=== PATIENT | male | born 1945 | race Caucasian/White ===

== ENCOUNTER 2018-10-27 17:58 | Emergency (ER) | payer MEDICARE, BC ==
--- NOTE | 2018-10-27 18:22 | EDM.PDOC ---
ED HPI GENERAL MEDICAL PROBLEM - General Chief Complaint: General Stated Complaint: fall, L knee, L ankle pain Time Seen by Provider: 10/27/18 18:15 Source of Information: Reports: Patient, Family (Multiple members including daughter and ), Old Records ([facility] chart/EMR) History Limitations: Reports: No Limitations - History of Present Illness INITIAL COMMENTS - FREE TEXT/NARRATIVE: The patient was brought to the emergency room via private automobile by multiple family members, including his , daughter, etc.. The patient slipped on the ice in the parking lot at [facility] while packing his groceries with patient falling on his left knee with additional twisting of his left ankle. He complains of 5/10 left knee pain with 10/10 left ankle pain. He denies any head injury, loss of consciousness, headaches, visual changes, change in mental status, neck/back pain, paresthesias, neurological deficits, or other complaints or injuries. The patient denies any chest pain/pressure, heart flutter, dizziness, orthostasis, orthopnea, diaphoresis, paresthesias, recent decreased exercise tolerance, or any other anginal-type symptoms. No recent history of abdominal pain, heartburn, nausea, diarrhea, melena, gross hematochezia, or any food intolerance, including fatty foods, etc.. He denies any gross hematuria, colic, or other UTI symptoms. The patient also denies any recent fever, cough, wheezing, dyspnea, etc.. Note previous distant left fibular fracture in 2001 as below. Onset: Today Onset Date: 10/27/18 Onset Time: 17:00 Duration: Constant Location: Reports: Lower Extremity, Left. 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: Reports: Other (see below) (None) Left Knee Pain Score (Numeric/FACES): 5 Left Ankle Pain Score (Numeric/FACES): 10 - Related Data Allergies Allergy/AdvReac Type Severity Reaction Status Date / Time bee venom protein (honey bee) Allergy Unknown Other Verified 10/27/18 18:31 Penicillins Allergy Unknown Other Verified 10/27/18 18:31 Home Meds: Home Meds Calcium Carbonate/Vitamin D3 [Calcium 600 + Vit D 400 Softgl] 1 each PO BID 03/09 [History] Multivit with Calcium,Iron,Min [Essential Daily] 1 each PO DAILY 10/27/18 [ History] Osimertinib Mesylate [Tagrisso] 80 mg PO DAILY 10/27/18 [History] Sertraline [Zoloft] 25 mg PO DAILY 10/27/18 [History] Warfarin [Coumadin] 4 mg PO DAILY 10/27/18 [History] Past Medical History HEENT History: Reports: Cataract, Impaired Vision, Other (See Below). 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 Patient wears glasses. Cataracts with no surgery to this point. Cardiovascular History: Reports: Blood Clots/VTE/DVT, High Cholesterol, Other ( See Below). Denies: Afib, Aneurysm, Arrhythmia, CAD, Heart Failure, Heart Murmur, Hypertension, AR, Syncope Other Cardiovascular History: DVT of the right popliteal region with secondary bilateral PEs in October 2017 with current Coumadin therapy. Respiratory History: Reports: Intubation, Previous, PE, Other (See Below). Denies: Asthma, Bronchitis, Recurrent, COPD, Intubation, Difficult, Pneumonia, Recurrent, Pneumothorax, Sleep Apnea, TB Other Respiratory History: PE as above. Right-sided Port-A-Cath placement in October 2017. Gastrointestinal History: Reports: Diverticulosis, Gastritis, GERD, Other (See Below). Denies: Celiac Disease, Cholelithiasis, Chronic Constipation, Chronic Diarrhea, Colon Polyp, Fecal Incontinence, GI Bleed, Hepatitis, Hiatal Hernia, Inflammatory Bowel Disease, Irritable Bowel Syndrome, Jaundice, Pancreatitis, PUD Other Gastrointestinal History: Sigmoid diverticulosis by CT scan. Benign hepatic cysts by CT scan. Genitourinary History: Reports: BPH, Prostate Disorder, Other (See Below). Denies: Acute Renal Failure, Chronic Renal Insuffiency, Renal Calculus, STD, Urinary Incontinence, UTI, Recurrent Other Genitourinary History: Prostate and bladder cancer as below. Benign renal cysts by CT scan. Musculoskeletal History: Reports: Arthritis, Back Pain, Chronic, Fracture, Osteoarthritis, Other (See Below). Denies: Amputation, Gout, Neck Pain, Chronic , Osteoporosis, RA, SLE Other Musculoskeletal History: Left lateral malleolar fracture in October 2001. Previous chronic T12 and L1 vertebral body compression fractures. Neurological History: Reports: Concussion, Head Trauma, Vertigo, Other (See Below). Denies: Alzheimers Disease, Brain Injury, Cerebral Aneurysms, CVA, Headaches, Chronic, Migraines, MS, Neuropathy, Diabetic, Neuropathy, Peripheral , Parkinson's, Seizure, TIA Other Neuro History: Head concussion X 1 in about 1979. Benign positional vertigo. Psychiatric History: Reports: Anxiety, Depression. Denies: Abuse, Victim of, ADD, ADHD, Addiction, Psych Hospitalization(s), PTSD, Suicide Attempt, Suicidal Ideation Endocrine/Metabolic History: Reports: Other (See Below). Denies: Diabetes, Type I, Diabetes, Type II, Diabetes Mellitus, Type 3c, Hypothyroidism, IDDM Other Endocrine/Metabolic History: Diabetes with resolution with weight loss Hematologic History: Denies: Anemia, Blood Transfusion(s), Iron Deficiency Immunologic History: Reports: None. Denies: AIDS, HIV, SLE Oncologic (Cancer) History: Reports: Basal Cell Carcinoma, Bladder, Prostate, Other (See Below). 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 Prostate cancer in 2016 with previous prostate biopsy and hormonal therapy. 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 Unknown type of bladder cancer in 2003 with BCG therapy. Dermatologic History: Reports: None. Denies: Eczema, Psoriasis - Infectious Disease History Infectious Disease History: Reports: Chicken Pox. Denies: C-Difficile, Measles , Meningitis, Mononucleosis, MRSA, Mumps, Pertussis (Whooping Cough), Rheumatic Fever, Rubella, Scarlet Fever, Shingles, TB, VRE - Past Surgical History Head Surgeries/Procedures: Reports: None HEENT Surgical History: Reports: Adenoidectomy, Eye Surgery, Oral Surgery, Tonsillectomy, Other (See Below). Denies: Cataract Surgery, Laser Surgery, LASIK, Myringotomy w Tube(s), Naso-Sinus Surgery Other HEENT Surgeries/Procedures: Tonsillectomy and adenoidectomy at about age 5. Pterygium removal of the right eye in his 40s. My wisdom with additional tooth extraction. Cardiovascular Surgical History: Reports: None. Denies: Varicose, Vascular Surgery Respiratory Surgical History: Reports: Lung Biopsies, Other (See Below). Denies : Lung Resection, Pneumonectomy Other Respiratory Surgeries/Procedures: Lung biopsies for lung cancer with subsequent right sided pleurodesis in April 2018. GI Surgical History: Reports: Colonoscopy, EGD, Other (See Below). Denies: Appendectomy, Cholecystectomy, Hernia, Abdominal, Hernia, Inguinal, Hernia Repair/Other, Polypectomy Other GI Surgeries/Procedures: Last Colonoscopy in about 2012. EGD in September 2017. Male Surgical History: Reports: Circumcision, Prostate Biopsy. Denies: TURP- Transurethral Resection of Prostate, Vasectomy Other Male Surgeries/Procedures: Circumcision as an . Prostate biopsies for prostate cancer as above. Cystoscopy on 02/28/04. Endocrine Surgical History: Reports: None. Denies: Thyroid Biopsy Neurological Surgical History: Denies: C-Spine, Discectomy, Laminectomy, Lumbar Spine, Sacral Spine, Spinal Fusion, Thoracic Spine, Vertebroplasty Musculoskeletal Surgical History: Reports: Arthroscopic Procedure, Joint Replacement, Knee Replacement, Shoulder Surgery, Other (See Below). Denies: Carpal Tunnel, Ganglion Cyst, ORIF Other Musculoskeletal Surgeries/Procedures:: Bilateral total knee arthroplasty in 2010. Arthroscopic right shoulder surgery in about 2003. Oncologic Surgical History: Reports: Other (See Below). Denies: Bone Marrow Aspiration, Bone Marrow Transplant Other Oncologic Surgeries/Procedures: As above Dermatological Surgical History: Reports: Other (See Below) Other Dermatological Surgeries/Procedures: Multiple Skin excisions for basal cell carcinoma from the facial region as above. - Past Imaging History Past Imaging History: Reports: CAT Scan (CT of the chest, abdomen, and pelvis on 10/02/17.), MRI (MRI of the thoracic and lumbar spine on 01/29/11), Other (See Below) (IVP on 02/06/04) Social & Family History - Tobacco Use Smoking Status *Q: Former Smoker Tobacco Use Within Last Twelve Months: No Years of Tobacco use: 30 Packs/Tins Daily: 1 Packs/Tins Daily Comment: Smoked between ages 20 and 50. Used Tobacco, but Quit: Yes Smoking Cessation Information Provided To Patient: No Second Hand Smoke Exposure: No Second Hand Smoke Education Provided: No - Caffeine Use Caffeine Use: Reports: None. Denies: Coffee, Energy Drinks, Soda, Tea - Alcohol Use Alcohol Use History: No Days Per Week of Alcohol Use: 0 Number of Drinks Per Day: 0 Number of Drinks Per Day Comment: No previous DWIs, problems with alcohol abuse , etc. Total Drinks Per Week: 0 Alcohol Use in Last Twelve Months: No - Recreational Drug Use Recreational Drug Use: No Drug Use in Last 12 Months: No Recreational Drug Type: Denies: Amphetamines (Speed), Cocaine, Flunitrazepam, Heroin, Inhalants (Glues, Solvents, Aerosols), LSD (Acid), Marijuana/Hashish, Methamphetamine, Morphine - Living Situation & Occupation Living situation: Reports: (1966. 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 Patient wearing glasses), PERRL Ears: Normal External Exam, Normal Canal, Hearing Grossly Normal, Normal TMs Nose: Normal Inspection, Normal Mucosa, No Blood Throat/Mouth: Normal Inspection, Normal Lips, Normal Teeth (Occasional missing teeth), Normal Gums, Normal Oropharynx, Normal Voice, No Airway Compromise. No : Dysphagia Head: Atraumatic, Normocephalic. No: Facial Swelling, Facial Tenderness, Sinus Tenderness Neck: Supple, Non-Tender, Full Range of Motion, Carotid Bruit (Mild bilateral carotid bruits). No: Lymphadenopathy (L), Lymphadenopathy (R), Thyromegaly Respiratory/Chest: No Respiratory Distress, Lungs Clear, Normal Breath Sounds, No Accessory Muscle Use, Chest Non-Tender. No: Pleural Rub, Retractions Cardiovascular: Normal Peripheral Pulses, No Edema, No Gallop, No JVD, No Murmur , No Rub, Extra Beats (Regular rate, occasional extrasystoles). No: Gallop/S3, Gallop/S4, Friction Rub Peripheral Pulses: 2+: Radial (L), Radial (R), Dorsalis Pedis (L), Dorsalis Pedis (R) GI/Abdominal: Normal Bowel Sounds, Soft, Non-Tender, No Organomegaly, No Distention, No Abnormal Bruit, No Mass, Pelvis Stable. No: Guarding (Male) Exam: Deferred Rectal (Males) Exam: Deferred Back Exam: Normal Inspection, Full Range of Motion. No: CVA Tenderness (L), CVA Tenderness (R), Muscle Spasm Extremities: No Pedal Edema, Normal Capillary Refill, Leg Pain (Mild palpation pain over left patellar region with moderate knee effusion but no instability, crepitation, or deformity. Moderate palpation pain over the left lateral malleolus with moderate localized effusion but no deformity, instability, etc.) . No: Lindsay's Sign Neurological: Alert, Oriented, CN II-XII Intact, Normal Cognition, Normal Gait, Normal Reflexes (Negative Babinski's), No Motor/Sensory Deficits Psychiatric: Normal Affect, Normal Mood Skin Exam: Warm, Intact, Normal Color, No Rash. No: Diaphoretic, Ecchymosis, Petechiae, Wound/Incision Lymphatic: No Adenopathy ED GENERAL MEDICAL PROCEDURES - Splinting Left Lower Extremity Pre-procedure NV status: Normal Post-procedure NV status: Normal Splint Material: Air Splint, Other (Que wrap under air ankle splint) Splint Design: Stirrup Applied & Form Fitted By: Nurse Provider Post-Splint Application NV Check: NV Status Normal, Good Position Complications: No Course - Vital Signs Last Recorded V/S: Last Vital Signs Temp 36.6 C 10/27/18 17:59 Pulse 73 10/27/18 17:59 Resp 16 10/27/18 17:59 BP 115/70 10/27/18 17:59 Pulse Ox 98 10/27/18 17:59 Vital Signs - 24 hr 10/27/18 17:59 Temperature [ 36.6 C Temporal] Pulse, 73 Peripheral [ Right Pulse Oximetry] Respiratory 16 Rate Blood Pressure 115/70 [Right Upper Arm] O2 Sat by Pulse 98 Oximetry - Orders/Labs/Meds Orders: Active Orders 24 hr Category Date Time Status Cardiac Monitoring [RC] . DIRECTED Care 10/27/18 18:39 Active Ankle Min 3V Lt [CR] Stat Exams 10/27/18 18:24 Taken Knee 3V Lt [CR] Stat Exams 10/27/18 18:23 Taken Durable Medical Equipment for Discharge [DME for Oth 10/27/18 18:48 Ordered Discharge] [COMM] Routine Durable Medical Equipment for Discharge [DME for Oth 10/27/18 18:49 Ordered Discharge] [COMM] Routine Durable Medical Equipment for Discharge [DME for Oth 10/27/18 18:49 Ordered Discharge] [COMM] Routine Obtain Past Medical Record [OM.PC] Routine Oth 10/27/18 18:23 Active Labs: None Meds: None - Radiology Interpretation Free Text/Narrative:: groundwater monitoring technician shows normal sinus rhythm in the 60s to 70s with no extrasystoles noted. X-rays of the left ankle, 3 views, shows probable hairline nondisplaced, non- angulated nonindurated distal fibular fracture. Ankle mortise is intact. Note previous distant left ankle fracture as above. X-rays of the left knee, 3 views, shows no evidence of fracture, dislocation, loosening of TKA, etc. Moderate osteoarthritic changes noted Departure - Departure Time of Disposition: 20:20 Disposition: Home, Self-Care 01 Condition: Good Clinical Impression: Peptic reflux disease, Mixed anxiety depressive disorder Closed fracture of left distal fibula Qualifiers: Encounter type: initial encounter Fracture morphology: unspecified fracture morphology Qualified Code(s): S82.832A - Other fracture of upper and lower end of left fibula, initial encounter for closed fracture Contusion of left knee Qualifiers: Encounter type: initial encounter Qualified Code(s): S80.02XA - Contusion of left knee, initial encounter Lung cancer Qualifiers: Laterality: right Lung location: lower lobe of lung Qualified Code(s): C34.31 - Malignant neoplasm of lower lobe, right bronchus or lung Osteoarthritis Qualifiers: Osteoarthritis location: multiple joints Osteoarthritis type: primary Qualified Code(s): M15.0 - Primary generalized (osteo)arthritis DVT (deep venous thrombosis) Qualifiers: DVT location: lower extremity Affected thrombotic vein of extremity: popliteal Chronicity: chronic Laterality: right Qualified Code(s): I82.531 - Chronic embolism and thrombosis of right popliteal vein - Discharge Information *PRESCRIPTION DRUG MONITORING PROGRAM REVIEWED*: Not Applicable *COPY OF PRESCRIPTION DRUG MONITORING REPORT IN PATIENT TONJA: Not Applicable Instructions: Crutch Use, Adult, [id number], Cast or Splint Care, Adult, Easy -to-Read, Tibial and Fibular Fractures, Contusion, [id number] Referrals: Zaida Jimenez PA [Primary Care Provider] - Forms: ED Department Discharge Additional Instructions: 1. Follow-up with your regular provider in one week with recommended repeat x- rays of the left ankle and PTT/INR 2. BenGay or equivalent, heating pad, and/or ice packs as directed. 3. Leg elevation as discussed 4. Limited weightbearing as discussed with Que wrap, crutches, and air ankle splint to be used at all times with exception of bathing and topical treatments. 5. No Extra aspirin, Tylenol, NSAIDs, etc. as discussed secondary to current Coumadin therapy - Problem List & Annotations (1) Closed fracture of left distal fibula SNOMED Code(s): 114226443 Code(s): S82.832A - OTH FRACTURE OF UPPER AND LOWER END OF LEFT FIBULA, INIT Status: Acute Priority: High Current Visit: Yes Onset Date: 10/27/18 Annotation/Comment:: Close follow-up by his regular provider as per discharge instructions with probable cast placement in one week at that time. Symptomatic relief as per discharge instructions with no additional NSAIDs, Tylenol, etc. secondary to his Coumadin therapy. By his history his INR was 1.7 yesterday at [facility] with patient restarted on his regular Coumadin dose at that time. Activity restrictions, etc. discussed. Patient placed in an air ankle splint and Que wrap br ER nurse with crutches provided. Qualifiers: Encounter type: initial encounter Fracture morphology: unspecified fracture morphology Qualified Code(s): S82.832A - Other fracture of upper and lower end of left fibula, initial encounter for closed fracture (2) Contusion of left knee SNOMED Code(s): 16837503 Code(s): S80.02XA - CONTUSION OF LEFT KNEE, INITIAL ENCOUNTER Status: Acute Priority: High Current Visit: Yes Onset Date: 10/27/18 Annotation/ Comment:: Symptomatic relief as above. Qualifiers: Encounter type: initial encounter Qualified Code(s): S80.02XA - Contusion of left knee, initial encounter (3) DVT (deep venous thrombosis) SNOMED Code(s): 104217550 Code(s): I82.409 - ACUTE EMBOLISM AND THOMBOS UNSP DEEP VN UNSP LOWER EXTREMITY Status: Chronic Priority: Medium Current Visit: Yes Annotation /Comment:: Mildly subtherapeutic INR recently as above. Note the patient's Coumadin had been on hold for a short time last week secondary to elevated previously INR. Close follow-up by regular provider. Qualifiers: DVT location: lower extremity Affected thrombotic vein of extremity: popliteal Chronicity: chronic Laterality: right Qualified Code(s): I82.531 - Chronic embolism and thrombosis of right popliteal vein (4) Lung cancer SNOMED Code(s): 100701502 Code(s): C34.90 - MALIGNANT NEOPLASM OF UNSP PART OF UNSP BRONCHUS OR LUNG Status: Chronic Priority: Medium Current Visit: Yes Annotation/Comment:: Currently under therapy as above. Recent fever or bronchitic type symptoms. Qualifiers: Laterality: right Lung location: lower lobe of lung Qualified Code(s): C34.31 - Malignant neoplasm of lower lobe, right bronchus or lung (5) Mixed anxiety depressive disorder SNOMED Code(s): 224800533 Code(s): F41.8 - OTHER SPECIFIED ANXIETY DISORDERS Status: Chronic Priority: Medium Current Visit: Yes Annotation/Comment:: Stable by history (6) Osteoarthritis SNOMED Code(s): 032124272 Code(s): M19.90 - UNSPECIFIED OSTEOARTHRITIS, UNSPECIFIED SITE Status: Chronic Priority: Medium Current Visit: Yes Annotation/Comment:: Otherwise stable by history Qualifiers: Osteoarthritis location: multiple joints Osteoarthritis type: primary Qualified Code(s): M15.0 - Primary generalized (osteo)arthritis (7) Peptic reflux disease SNOMED Code(s): 688645275 Code(s): K21.9 - GASTRO-ESOPHAGEAL REFLUX DISEASE WITHOUT ESOPHAGITIS Status: Chronic Priority: Medium Current Visit: Yes Annotation/Comment:: Stable by history. - Problem List Review Problem List Initiated/Reviewed/Updated: Yes - My Orders Last 24 Hours: My Active Orders 10/27/18 18:23 Knee 3V Lt [CR] Stat Obtain Past Medical Record [OM.PC] Routine 10/27/18 18:24 Ankle Min 3V Lt [CR] Stat 10/27/18 18:39 Cardiac Monitoring [RC] . DIRECTED 10/27/18 18:48 Durable Medical Equipment for Discharge [DME for Discharge] [COMM] Routine 10/27/18 18:49 Durable Medical Equipment for Discharge [DME for Discharge] [COMM] Routine Durable Medical Equipment for Discharge [DME for Discharge] [COMM] Routine - Assessment/Plan Last 24 Hours: My Active Orders 10/27/18 18:23 Knee 3V Lt [CR] Stat Obtain Past Medical Record [OM.PC] Routine 10/27/18 18:24 Ankle Min 3V Lt [CR] Stat 10/27/18 18:39 Cardiac Monitoring [RC] . DIRECTED 10/27/18 18:48 Durable Medical Equipment for Discharge [DME for Discharge] [COMM] Routine 10/27/18 18:49 Durable Medical Equipment for Discharge [DME for Discharge] [COMM] Routine Durable Medical Equipment for Discharge [DME for Discharge] [COMM] Routine Assessment:: As above Plan: As above. Extensive precautions were given to the patient and multiple family members, who are in agreement with the treatment plan. See Patient Instructions for further treatment and plan.
== END 2018-10-27 20:30 | disposition home or self-care (01) ==
LOC: LL.ED 17:58
DX: S82.832A Other fracture of upper and lower end of left fibula, initial encounter for closed fracture (principal); S80.02XA Contusion of left knee, initial encounter; C34.31 Malignant neoplasm of lower lobe, right bronchus or lung; M15.0 Primary generalized (osteo)arthritis; I82.531 Chronic embolism and thrombosis of right popliteal vein; K30 Functional dyspepsia; F41.8 Other specified anxiety disorders; Z88.0 Allergy status to penicillin; Z87.891 Personal history of nicotine dependence; W00.0XXA Fall on same level due to ice and snow, initial encounter
CPT/HCPCS: 73562-LT; 73610-LT; 99284

== ENCOUNTER 2020-12-14 17:10 | Emergency (ER) | payer MEDICARE, BC ==
--- NOTE | 2020-12-14 18:05 | EDM.PDOC ---
ED HPI GENERAL MEDICAL PROBLEM - General Chief Complaint: Fever Stated Complaint: immunocompromised fever Time Seen by Provider: 12/14/20 17:15 Source of Information: Reports: Patient, Family History Limitations: Reports: No Limitations - History of Present Illness INITIAL COMMENTS - FREE TEXT/NARRATIVE: He is brought to the ED by his for evaluation of a fever. He has lung cancer and had chemotherapy on . This afternoon, the felt he was warm. Checked the temp at home 3 times, with readings of 100.4,100.6 and 100.8. states she doesn't trust the thermometer. No nasal congestion or runny nose. No sore throat. No cough or abnormal shortness of breath. H does complain of some lower abdominal discomfort since falling onto his abdomen about a week ago, but no change in the past 1-2 days. No dysuria, urgency or frequency. He was treated with Cipro for 7 days for possible pneumonia, finishing the course on . - Related Data Allergies Allergy/AdvReac Type Severity Reaction Status Date / Time bee venom protein (honey bee) Allergy Unknown Other Verified 10/27/18 18:31 Penicillins Allergy Unknown Other Verified 10/27/18 18:31 Home Meds: Home Meds Calcium Carbonate/Vitamin D3 [Calcium 600Mg-D3 400 Unit Sfgl] 1 each PO BID 10/27/18 [History] Multivit with Calcium,Iron,Min [Essential Daily] 1 each PO DAILY 10/27/18 [History] Sertraline [Zoloft] 25 mg PO DAILY 10/27/18 [History] Apixaban [Eliquis] 2.5 mg PO BID 12/14/20 [History] Prochlorperazine [Compazine] 10 mg PO Q6H PRN 12/14/20 [History] dexAMETHasone [Dexamethasone] 4 mg PO ASDIRECTED PRN 12/14/20 [History] levETIRAcetam [Keppra] 500 mg PO BID 12/14/20 [History] oxyCODONE 5 mg PO Q4HR PRN 12/14/20 [History] Past Medical History HEENT History: Reports: Cataract, Impaired Vision, Other (See Below) Other HEENT History: 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 Patient wears glasses. Cataracts with no surgery to this point. Cardiovascular History: Reports: Blood Clots/VTE/DVT, High Cholesterol, Other (See Below) Other Cardiovascular History: DVT of the right popliteal region with secondary bilateral PEs in October 2017 with current Coumadin therapy. Respiratory History: Reports: Intubation, Previous, PE, Other (See Below) Other Respiratory History: PE as above. Right-sided Port-A-Cath placement in October 2017. Gastrointestinal History: Reports: Diverticulosis, Gastritis, GERD, Other (See Below) Other Gastrointestinal History: Sigmoid diverticulosis by CT scan. Benign hepa tic cysts by CT scan. Genitourinary History: Reports: BPH, Prostate Disorder, Other (See Below) Other Genitourinary History: Prostate and bladder cancer as below. Benign renal cysts by CT scan. Musculoskeletal History: Reports: Arthritis, Back Pain, Chronic, Fracture, Osteoarthritis, Other (See Below) Other Musculoskeletal History: Left lateral malleolar fracture in October 2001. Previous chronic T12 and L1 vertebral body compression fractures. Neurological History: Reports: Concussion, Head Trauma, Vertigo, Other (See Below) Other Neuro History: Head concussion X 1 in about 1979. Benign positional vertigo. 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 Prostate cancer in 2016 with previous prostate biopsy and hormonal therapy. 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 Unknown type of bladder cancer in 2003 with BCG therapy. Dermatologic History: Reports: None - Infectious Disease History Infectious Disease History: Reports: Chicken Pox - Past Surgical History Head Surgeries/Procedures: Reports: None HEENT Surgical History: Reports: Adenoidectomy, Eye Surgery, Oral Surgery, Tonsillectomy, Other (See Below) Other HEENT Surgeries/Procedures: Tonsillectomy and adenoidectomy at about age 5. Pterygium removal of the right eye in his 40s. My wisdom with additional tooth extraction. Cardiovascular Surgical History: Reports: None Respiratory Surgical History: Reports: Lung Biopsies, Other (See Below) Other Respiratory Surgeries/Procedures: Lung biopsies for lung cancer with subsequent right sided pleurodesis in April 2018. GI Surgical History: Reports: Colonoscopy, EGD, Other (See Below) Other GI Surgeries/Procedures: Last Colonoscopy in about 2012. EGD in September 2017. Male Surgical History: Reports: Circumcision, Prostate Biopsy Other Male Surgeries/Procedures: Circumcision as an infant. Prostate biopsies for prostate cancer as above. Cystoscopy on 02/28/04. Endocrine Surgical History: Reports: None Musculoskeletal Surgical History: Reports: Arthroscopic Procedure, Joint Replacement, Knee Replacement, Shoulder Surgery, Other (See Below) Other Musculoskeletal Surgeries/Procedures:: Bilateral total knee arthroplasty in 2010. Arthroscopic right shoulder surgery in about 2003. Oncologic Surgical History: Reports: Other (See Below) Other Oncologic Surgeries/Procedures: As above Dermatological Surgical History: Reports: Other (See Below) - Past Imaging History Past Imaging History: Reports: CAT Scan (CT of the chest, abdomen, and pelvis on 10/02/17.), MRI (MRI of the thoracic and lumbar spine on 01/29/11), Other (See Below) (IVP on 02/06/04) Social & Family History - Tobacco Use Tobacco Use Status *Q: Former Tobacco User Used Tobacco, but Quit: Yes Month/Year Tobacco Last Used: "long time ago" - Caffeine Use Caffeine Use: Reports: None. Denies: Coffee, Energy Drinks, Soda, Tea - Living Situation & Occupation Living situation: Reports: (1966. 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 Denies: Chills, Malaise, Weakness, Fatigue HEENT: Denies: Nosebleed, Rhinitis, Sinus Problem, Throat Pain, Throat Swelling Respiratory: Denies: Shortness of Breath, Cough Cardiovascular: Denies: Chest Pain, Palpitations, Syncope GI/Abdominal: Reports: Abdominal Pain (Mild lower abdominal pain for past week). Denies: Diarrhea, Nausea, Vomiting : Denies: Discharge, Dysuria, Flank Pain, Frequency, Urgency Skin: Denies: Rash Neurological: Reports: Confusion (Intermittenet confusion for the past 9 months.). Denies: Dizziness, Headache, Syncope Psychiatric: Denies: Agitation, Anxiety ED EXAM, GENERAL - Physical Exam Exam: See Below Exam Limited By: No Limitations General Appearance: Alert, WD/WN, No Apparent Distress Eye Exam: Bilateral Eye: EOMI, PERRL Ears: Normal External Exam, Normal Canal, Hearing Grossly Normal, Normal TMs Nose: Normal Inspection, Normal Mucosa, No Blood Throat/Mouth: Normal Inspection, Normal Oropharynx, No Airway Compromise Head: Atraumatic, Normocephalic Neck: Non-Tender Respiratory/Chest: No Respiratory Distress, Lungs Clear, Normal Breath Sounds Cardiovascular: Regular Rate, Rhythm, No Edema, No Murmur GI/Abdominal: Normal Bowel Sounds, Soft, Tender (Mild diffuse lower quadrant tenderness). No: Guarding, Rebound Neurological: Alert, Oriented Psychiatric: Normal Affect, Normal Mood Skin Exam: Warm, Dry Lymphatic: No Adenopathy Course - Vital Signs Text/Narrative:: Exam is unremarkable, but questionable slight infiltrate on CXR and elevated CRP so will treat presumptively with levoquin and follow up with oncology. Last Recorded V/S: Last Vital Signs Temp 37.4 C 12/14/20 17:10 Pulse 109 H 12/14/20 17:10 Resp 24 H 12/14/20 17:10 BP 116/64 12/14/20 17:10 Pulse Ox 94 L 12/14/20 17:10 - Orders/Labs/Meds Orders: Active Orders 24 hr Category Date Time Status Chest 2V [CR] Stat Exams 12/14/20 17:39 Ordered Labs: Laboratory Tests 12/14/20 12/14/20 12/14/20 Range/Units 17:49 17:49 17:49 WBC 4.7 (4.0-10.2) K/uL RBC 4.27 L (4.33-5.41) M/uL Hgb 13.4 (13.1-16.8) g/dL Hct 39.7 (39.0-49.0) % MCV 93.0 D (84.0-98.0) fL MCH 31.4 (28.2-33.3) pg MCHC 33.8 (31.7-36.0) g/dL RDW 12.6 (11.2-14.1) % Plt Count 175 (150-350) K/uL Neut % (Auto) 60.1 (45.0-80.0) % Lymph % (Auto) 13.5 (10.0-50.0) % [place] % (Auto) 24.9 H (2.0-14.0) % Eos % (Auto) 1.1 (0.0-5.0) % Baso % (Auto) 0.4 (0.0-2.0) % Neut # (Auto) 2.79 (1.40-7.00) K/uL Lymph # (Auto) 0.63 (0.50-3.50) K/uL [place] # (Auto) 1.16 H (0.00-1.00) K/uL Eos # (Auto) 0.05 (0.00-0.50) K/uL Baso # (Auto) 0.02 (0.00-0.20) K/uL Sodium 133 L (136-145) mmol/L Potassium 4.5 (3.5-5.1) mmol/L Chloride 98 (98-107) mmol/L Carbon Dioxide 25.0 (21.0-32.0) mmol/L BUN 26 H (7-18) mg/dL Creatinine 1.03 (0.51-1.17) mg/dL Est Cr Clr Drug Dosing 55.92 mL/min Estimated GFR (MDRD) > 60 mL/min Glucose 136 H (70-99) mg/dL Calcium 9.1 (8.5-10.1) mg/dL Total Bilirubin 0.5 (0.2-1.0) mg/dL AST 21 (15-37) U/L ALT 25 (12-78) U/L Alkaline Phosphatase 73 (46-116) IU/L Total Protein 7.4 (6.4-8.2) g/dL Albumin 3.2 L (3.4-5.0) g/dL Specimen Type Urincc Urine Color Yellow Urine Appearance Clear Urine pH 5.5 (5.0-9.0) Ur Specific [place] 1.020 (1.005-1.030) Urine Protein 30 H (NEGATIVE) mg/dL Urine Glucose (UA) Negative (NEGATIVE) mg/dL Urine Ketones Negative (NEGATIVE) mg/dL Urine Occult Blood Negative (NEGATIVE) Urine Nitrite Negative (NEGATIVE) Urine Bilirubin Negative (NEGATIVE) Urine Urobilinogen 0.2 (0.2-1.0) E.U./dL Ur Leukocyte Esterase Negative (NEGATIVE) Urine RBC Not seen /HPF Urine WBC Not seen /HPF Ur Epithelial Cells Rare /LPF Urine Bacteria Rare (NONE TO FEW) /HPF - Radiology Interpretation Free Text/Narrative:: 2 views of the chest. Questionable small infiltrate in the right lower lung. Normal cardiac silhouette Departure - Departure Time of Disposition: 18:19 Disposition: Home, Self-Care 01 Condition: Good Clinical Impression: Fever, Immunosuppressed due to chemotherapy - Discharge Information *PRESCRIPTION DRUG MONITORING PROGRAM REVIEWED*: Not Applicable *COPY OF PRESCRIPTION DRUG MONITORING REPORT IN PATIENT TONJA: Not Applicable Referrals: Zaida Jimenez PA [Primary Care Provider] - Forms: ED Department Discharge Additional Instructions: Levoquin 500 mg once daily. Talk to oncologist on Thursday regarding need to continue med or not. Return with worsening symptoms. Sepsis Event Note (ED) - Evaluation Sepsis Screening Result: Possible Sepsis Risk - Focused Exam Vital Signs: Vital Signs Temp Pulse Resp BP Pulse Ox 12/14/20 17:10 37.4 C 109 H 24 H 116/64 94 L - My Orders Last 24 Hours: My Active Orders 12/14/20 17:39 Chest 2V [CR] Stat - Assessment/Plan Last 24 Hours: My Active Orders 12/14/20 17:39 Chest 2V [CR] Stat
[2020-12-14 18:07] LABS: CHLORIDE,CL 98 mmol/L (98-107); SODIUM,NA 133 mmol/L (136-145)
== END 2020-12-14 18:40 | disposition home or self-care (01) ==
LOC: LL.ED 17:10
DX: R50.9 Fever, unspecified (principal); D84.821 Immunodeficiency due to drugs; T45.1X5A Adverse effect of antineoplastic and immunosuppressive drugs, initial encounter; E11.9 Type 2 diabetes mellitus without complications; Z86.711 Personal history of pulmonary embolism; Z86.718 Personal history of other venous thrombosis and embolism; Z87.891 Personal history of nicotine dependence; Z91.030 Bee allergy status; Z88.0 Allergy status to penicillin; Z79.01 Long term (current) use of anticoagulants; Z79.899 Other long term (current) drug therapy
CPT/HCPCS: 36415; 71046; 80053; 81001; 85025; 99283; 99284-25

== ENCOUNTER 2021-01-01 09:11 | Emergency (ER) | payer MEDICARE, BC ==
[2021-01-01] MEDS ORDERED: Famotidine 20 MG/2 ML SDV IVPUSH ONE (09:19)
[2021-01-01] MEDS ORDERED: Ticagrelor 90 MG Tab PO ONE (09:19)
[2021-01-01] MEDS ORDERED: Sodium Chloride 0.9% 10 ML Syringe FLUSH PRN (09:19)
--- NOTE | 2021-01-01 09:19 | EDM.PDOC ---
ED HPI GENERAL MEDICAL PROBLEM - General Chief Complaint: Chest Pain Stated Complaint: chest pain Time Seen by Provider: 01/01/21 09:15 Source of Information: Reports: Patient, Family (), Old Records ([facility] chart/EMR) History Limitations: Reports: No Limitations - History of Present Illness INITIAL COMMENTS - FREE TEXT/NARRATIVE: Patient was brought to the emergency room for evaluation of 10/10 retrosternal chest pressure with some radiation to the right shoulder with symptoms starting at about 8:30 AM this morning while he was trying to get dressed. He did have an episode of nonspecific weakness yesterday evening without history of fall or injury. Note that the patient does have right lower lobe lung cancer currently under chemotherapy with last dose on 12/27/2020. He has had some baseline dyspnea and decreased exercise tolerance secondary to this illness. The patient denies any heart flutter, dizziness, orthostasis, orthopnea, diaphoresis, paresthesias, or any other anginal-type symptoms. No recent history of abdominal pain, heartburn, nausea, diarrhea, melena, gross hematochezia, or any food intolerance, including fatty foods, etc. with normal bowel movement yesterday evening. He denies any gross hematuria, colic, or other UTI symptoms. The patient also denies any recent fever, cough, wheezing, etc.. He has not had COVID-19 with Moderna immunization series completed at the end of October 2020. The patient did take 2 tablets of his oxycodone at about 8:30 AM this morning. Onset: Gradual, Unknown/Unsure Onset Date: 01/01/21 Onset Time: 08:30 Duration: Constant Location: Reports: Chest, Upper Extremity, Right, Radiates to (As above). Denies: Head, Face, Neck, Abdomen, Back, Pelvis, Upper Extremity, Left Quality: Reports: Pressure Severity: Severe Improves with: Reports: None Worsens with: Reports: Breathing Context: Reports: Other (As above). Denies: Sick Contact, Trauma Associated Symptoms: Reports: Chest Pain. 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: Reports: Other Medication(s) Other Treatments MOTORCOACH OPERATOR: oxycodone PRN Chest Pain Score (Numeric/FACES): 10 - Related Data Allergies Allergy/AdvReac Type Severity Reaction Status Date / Time bee venom protein (honey bee) Allergy Unknown Other Verified 01/01/21 09:18 Penicillins Allergy Unknown Other Verified 01/01/21 09:18 Home Meds: Home Meds Calcium Carbonate/Vitamin D3 [Calcium 600Mg-D3 400 Unit Sfgl] 1 each PO BID 10/27/18 [History] Multivit with Calcium,Iron,Min [Essential Daily] 1 each PO DAILY 10/27/18 [History] Sertraline [Zoloft] 25 mg PO DAILY 10/27/18 [History] Apixaban [Eliquis] 2.5 mg PO BID 12/14/20 [History] Prochlorperazine [Compazine] 10 mg PO Q6H PRN 12/14/20 [History] dexAMETHasone [Dexamethasone] 4 mg PO ASDIRECTED PRN 12/14/20 [History] levETIRAcetam [Keppra] 500 mg PO BID 12/14/20 [History] oxyCODONE 5 mg PO Q4HR PRN 12/14/20 [History] Acetaminophen [Tylenol Arthritis] 2 tab PO ASDIRECTED 01/01/21 [History] Past Medical History HEENT History: Reports: Cataract, Impaired Vision, Other (See Below). 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 Patient wears glasses. Cataracts with no surgery to this point. Cardiovascular History: Reports: Blood Clots/VTE/DVT, High Cholesterol, Other (See Below). Denies: Afib, Arrhythmia, CAD, Cardiomyopathy, Heart Failure, Heart Murmur, Hypertension, [place], PTCA, PVD, Syncope Other Cardiovascular History: DVT of the right popliteal region with secondary bilateral PEs in October 2017 with current Eliquis therapy. Respiratory History: Reports: Intubation, Previous, PE, Other (See Below). Denies: Asthma, Bronchitis, Recurrent, COPD, Intubation, Difficult, Pneumonia, Recurrent, Pneumothorax, Sleep Apnea, TB Other Respiratory History: PE as above. Right-sided Port-A-Cath placement in October 2017. Right lower lobe lung cancer with current chemotherapy and no previous radiation therapy. Gastrointestinal History: Reports: Diverticulosis, Gastritis, GERD, Other (See Below). Denies: Celiac Disease, Cholelithiasis, Chronic Constipation, Chronic Diarrhea, Colon Polyp, Fatty Liver, Fecal Incontinence, GI Bleed, Hepatitis, Hiatal Hernia, Inflammatory Bowel Disease, Irritable Bowel Syndrome, Jaundice, Pancreatitis, PUD Other Gastrointestinal History: Sigmoid diverticulosis by CT scan. Benign hepatic cysts by CT scan. Genitourinary History: Reports: BPH, Prostate Disorder, Other (See Below). Denies: Acute Renal Failure, Chronic Renal Insuffiency, Renal Calculus, Retention, Urinary, STD, Urinary Incontinence, UTI, Recurrent Other Genitourinary History: Prostate and bladder cancer as below. Benign renal cysts by CT scan. Musculoskeletal History: Reports: Arthritis, Back Pain, Chronic, Fracture, Osteoarthritis, Other (See Below). Denies: Amputation, Gout, Neck Pain, Chronic, RA, SLE Other Musculoskeletal History: Left lateral malleolar fracture in October 2001. Previous chronic T12 and L1 vertebral body compression fractures. Neurological History: Reports: Concussion, Head Trauma, Vertigo, Other (See Below). Denies: Alzheimers Disease, Cerebral Aneurysms, CVA, Headaches, Chronic, Migraines, MS, Neuropathy, Peripheral, Parkinson's, Seizure, TIA Other Neuro History: Head concussion X 1 in about 1979. Benign positional vertigo. Psychiatric History: Reports: Anxiety, Depression. Denies: Abuse, Victim of, ADD, ADHD, Addiction, Dementia, Psych Hospitalization(s), Psychosis, PTSD, Schizophrenia, Suicide Attempt, Suicidal Ideation Endocrine/Metabolic History: Reports: Other (See Below). Denies: Diabetes, Type I, Diabetes, Type II, Diabetes Mellitus, Type 3c, Hypothyroidism, IDDM, Obesity/BMI 30+ Other Endocrine/Metabolic History: Diabetes with resolution with weight loss Hematologic History: Reports: Other (See Below). 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 Immunologic History: Reports: Immunosuppression. 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 Prostate cancer in 2017 with previous prostate biopsy and hormonal therapy. 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 Unknown type of bladder cancer in 2004 with BCG therapy. Dermatologic History: Reports: None. Denies: Eczema, Psoriasis, Venous Stasis Dermatitis - Infectious Disease History Infectious Disease History: Reports: Chicken Pox. Denies: C-Difficile, Measles, Meningitis, Mononucleosis, MRSA, Mumps, Novel Coronavirus, Pertussis (Whooping Cough), Rheumatic Fever, Rubella, Scarlet Fever, Shingles, TB, VRE - Past Surgical History Head Surgeries/Procedures: Reports: None HEENT Surgical History: Reports: Adenoidectomy, Eye Surgery, Oral Surgery, Tonsillectomy, Other (See Below). Denies: Cataract Surgery, Laser Surgery, LASIK, Myringotomy w Tube(s), Naso-Sinus Surgery Other HEENT Surgeries/Procedures: Tonsillectomy and adenoidectomy at about age 5. Pterygium removal of the right eye in his 40s. [place] teeth extraction with additional tooth extractions. Cardiovascular Surgical History: Reports: Other (See Below). Denies: Varicose Other Cardiovascular Surgeries/Procedures: Right-sided Port-A-Cath placement in October 2017. Respiratory Surgical History: Reports: Lung Biopsies, Thoracentesis, Other (See Below) Other Respiratory Surgeries/Procedures: Lung biopsies for lung cancer with subsequent right sided pleurodesis in April 2018. GI Surgical History: Reports: Colonoscopy, EGD, Other (See Below). Denies: Appendectomy, Cholecystectomy, ERCP, Hernia, Abdominal, Hernia, Inguinal, Hernia Repair/Other, Polypectomy Other GI Surgeries/Procedures: Last Colonoscopy in about 2012. EGD in September 2017. Male Surgical History: Reports: Circumcision, Prostate Biopsy. Denies: TURP- Transurethral Resection of Prostate, Vasectomy Other Male Surgeries/Procedures: Circumcision as an infant. Prostate biopsies for prostate cancer as above. Cystoscopy on 02/28/04. Endocrine Surgical History: Reports: None. Denies: Thyroid Biopsy Neurological Surgical History: Reports: None. Denies: C-Spine, Discectomy, Laminectomy, Lumbar Spine, Sacral Spine, Spinal Fusion, Thoracic Spine, Vertebr oplasty Musculoskeletal Surgical History: Reports: Arthroscopic Procedure, Joint Replacement, Knee Replacement, Shoulder Surgery, Other (See Below). Denies: Carpal Tunnel, Ganglion Cyst, ORIF Other Musculoskeletal Surgeries/Procedures:: Bilateral total knee arthroplasty in 2010. Arthroscopic right shoulder surgery in about 2003. Oncologic Surgical History: Reports: Other (See Below) Other Oncologic Surgeries/Procedures: As above Dermatological Surgical History: Reports: Other (See Below) Other Dermatological Surgeries/Procedures: Multiple skin excisions for basal cell carcinoma from the facial region as above. - Past Imaging History Past Imaging History: Reports: CAT Scan (CT of the chest, abdomen, and pelvis on 10/02/17.), MRI (MRI of the thoracic and lumbar spine on 01/29/11), Other (See Below) (IVP on 02/06/04) Social & Family History - Tobacco Use Tobacco Use Status *Q: Former Tobacco User Tobacco Use Within Last Twelve Months: No Years of Tobacco use: 30 Packs/Tins Daily: 1 Packs/Tins Daily Comment: Smoked between ages 20 and 30. Used Tobacco, but Quit: Yes Smoking Cessation Information Provided To Patient: No Second Hand Smoke Exposure: No Second Hand Smoke Education Provided: No - Caffeine Use Caffeine Use: Reports: None. Denies: Coffee, Energy Drinks, Soda, Tea - Alcohol Use Alcohol Use History: No Days Per Week of Alcohol Use: 0 Number of Drinks Per Day: 0 Number of Drinks Per Day Comment: No previous DWIs, problems with alcohol abuse, etc. Total Drinks Per Week: 0 Alcohol Use in Last Twelve Months: No - Recreational Drug Use Recreational Drug Use: No Drug Use in Last 12 Months: No Recreational Drug Type: Denies: Amphetamines (Speed), Cocaine, Dextromethorphan (Cough Syrup), Heroin, Inhalants (Glues, Solvents, Aerosols), LSD (Acid), Marijuana/Hashish, Methamphetamine, Morphine, Oxycodone - Living Situation & Occupation Living situation: Reports: (1966. 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 ED EXAM, GENERAL - Physical Exam Exam: See Below Exam Limited By: No Limitations General Appearance: Alert, WD/WN, No Apparent Distress, Anxious (Mild) Head: Atraumatic, Normocephalic. No: Facial Swelling, Facial Tenderness, Sinus Tenderness Neck: Supple, Non-Tender, Full Range of Motion, Carotid Bruit (Mild bilateral carotid bruits versus transmitted heart sounds). No: Lymphadenopathy (L), Lymphadenopathy (R), Thyromegaly Respiratory/Chest: No Respiratory Distress, No Accessory Muscle Use, Chest Non- Tender, Decreased Breath Sounds (Mild right lower lobe), Rales (Moderate bilateral basal rales right greater than left), Other (Port-A-Cath noted in the right upper chest wall region). No: Rhonchi, Wheezing, Pleural Rub Cardiovascular: Normal Peripheral Pulses, Regular Rate, Rhythm, No Edema, No Gallop, No JVD, No Rub, Systolic Murmur (Mild 1/6 QUINTIN of the aortic valve). No: Diastolic Murmur, Gallop/S3, Gallop/S4, Friction Rub Peripheral Pulses: 2+: Radial (L), Radial (R), Dorsalis Pedis (L), Dorsalis Pedis (R) GI/Abdominal: Normal Bowel Sounds, Soft, Non-Tender, No Organomegaly, No Distention, No Abnormal Bruit, No Mass, Pelvis Stable. No: Guarding (Male) Exam: Deferred Rectal (Males) Exam: Deferred Back Exam: Normal Inspection, Full Range of Motion. No: CVA Tenderness (L), CVA Tenderness (R), Muscle Spasm Extremities: Normal Inspection, Normal Range of Motion, Non-Tender, No Pedal Edema, Normal Capillary Refill. No: Lindsay's Sign Neurological: Alert, Oriented, CN II-XII Intact, Normal Cognition, Normal Gait, No Motor/Sensory Deficits Psychiatric: Anxious (Mild), Depressed Mood (Mild) Skin Exam: Warm, Dry, Intact, Normal Color, No Rash. No: Diaphoretic, Wound/Incision Lymphatic: No Adenopathy #1 Interpretation EKG Date: 01/01/21 Time: 09:22 Rhythm: NSR Rate (Beats/Min): 98 [place]: Normal (Left) P-Wave: Enlarged (Mild diffuse biphasic) QRS: Normal (0.08 seconds) ST-T: Normal QT: Normal [place]/PQ Interval: 0.13 seconds representing a short [place] interval with no delta waves noted Comparison: NA - No Prior EKG EKG Interpretation Comments: 1. No acute ischemic changes 2. Left atrial enlargement Course - Vital Signs Last Recorded V/S: Last Vital Signs Temp 37.2 C 01/01/21 09:12 Pulse 87 01/01/21 12:38 Resp 21 H 01/01/21 12:38 BP 104/66 01/01/21 12:38 Pulse Ox 93 L 01/01/21 12:38 Vital Signs - 24 hr 01/01/21 01/01/21 01/01/21 09:12 09:14 09:29 Temperature [ 37.2 C Temporal] Pulse, 93 98 97 Peripheral [ Left Pulse Oximetry] Respiratory 27 H 29 H 31 H Rate Blood Pressure 117/60 128/69 [Left Upper Arm ] Blood Pressure 138/71 [Right Upper Arm] O2 Sat by Pulse 93 L 93 L 93 L Oximetry 01/01/21 01/01/21 01/01/21 09:44 09:59 10:25 Temperature [ Temporal] Pulse, 91 89 84 Peripheral [ Left Pulse Oximetry] Respiratory 27 H 26 H Rate Blood Pressure 109/55 L 100/60 105/58 L [Left Upper Arm ] Blood Pressure [Right Upper Arm] O2 Sat by Pulse 92 L 93 L 93 L Oximetry 01/01/21 01/01/21 01/01/21 10:53 11:08 11:23 Temperature [ Temporal] Pulse, 88 90 89 Peripheral [ Left Pulse Oximetry] Respiratory 24 H 18 26 H Rate Blood Pressure 120/56 L 101/52 L 119/58 L [Left Upper Arm ] Blood Pressure [Right Upper Arm] O2 Sat by Pulse 94 L 93 L 26 L Oximetry 01/01/21 01/01/21 01/01/21 11:38 11:53 12:08 Temperature [ Temporal] Pulse, 89 88 86 Peripheral [ Left Pulse Oximetry] Respiratory 21 H 20 22 H Rate Blood Pressure 113/56 L 103/55 L 109/53 L [Left Upper Arm ] Blood Pressure [Right Upper Arm] O2 Sat by Pulse 93 L 93 L 93 L Oximetry 01/01/21 01/01/21 12:23 12:38 Temperature [ Temporal] Pulse, 86 87 Peripheral [ Left Pulse Oximetry] Respiratory 20 21 H Rate Blood Pressure 103/53 L 104/66 [Left Upper Arm ] Blood Pressure [Right Upper Arm] O2 Sat by Pulse 93 L 93 L Oximetry - Orders/Labs/Meds Orders: Active Orders 24 hr Category Date Time Status Cardiac Monitoring [RC] . DIRECTED Care 01/01/21 09:20 Active EKG Documentation Completion [RC] ASDIRECTED Care 01/01/21 09:20 Active Oxygen Therapy, ED [RC] PRN Care 01/01/21 09:20 Active Peripheral IV Care [RC] . DIRECTED Care 01/01/21 09:20 Active Pulse Oximetry [RC] CONTINUOUS Care 01/01/21 09:20 Active Up With Assistance [RC] PFP Care 01/01/21 09:20 Active Vital Signs [RC] PFP Care 01/01/21 09:20 Active Nothing per Oral Now Diet [DIET] Diet 01/01/21 Breakfast Active Chest 1V Frontal [CR] Stat Exams 01/01/21 09:20 Taken Chest PE [Ang Chest] [CT] Stat Exams 01/01/21 10:24 Taken Sodium Chloride 0.9% [Saline Flush] Med 01/01/21 09:19 Active 10 ml FLUSH ASDIRECTED PRN Obtain Past Medical Record [OM.PC] Urgent Oth 01/01/21 09:20 Active Peripheral IV Insertion Adult [OM.PC] Stat Oth 01/01/21 09:20 Ordered Resuscitation Status Stat Resus Stat 01/01/21 09:19 Ordered Medication Orders Sodium Chloride (Sodium Chloride 0.9% 10 Ml Syringe) 10 ml FLUSH ASDIRECTED PRN PRN Reason: Keep Vein Open Last Admin: 01/01/21 09:34 Dose: 10 ml Documented by: MARLEEN Labs: Laboratory Tests 01/01/21 01/01/21 01/01/21 Range/Units 09:30 09:30 09:30 WBC 9.4 (4.0-10.2) K/uL RBC 4.05 L (4.33-5.41) M/uL Hgb 12.7 L (13.1-16.8) g/dL Hct 37.5 L (39.0-49.0) % MCV 92.6 (84.0-98.0) fL MCH 31.4 (28.2-33.3) pg MCHC 33.9 (31.7-36.0) g/dL RDW 13.1 (11.2-14.1) % Plt Count 227 (150-350) K/uL Neut % (Auto) 87.7 H (45.0-80.0) % Lymph % (Auto) 4.9 L (10.0-50.0) % [place] % (Auto) 6.8 (2.0-14.0) % Eos % (Auto) 0.5 (0.0-5.0) % Baso % (Auto) 0.1 (0.0-2.0) % Neut # (Auto) 8.25 H (1.40-7.00) K/uL Lymph # (Auto) 0.46 L (0.50-3.50) K/uL [place] # (Auto) 0.64 (0.00-1.00) K/uL Eos # (Auto) 0.05 (0.00-0.50) K/uL Baso # (Auto) 0.01 (0.00-0.20) K/uL PT 10.5 (9.5-12.0) SEC INR 1.0 APTT 35.7 H (24.5-32.8) SEC D-Dimer, Quantitative 2080 H (0-400) ng/mL Sodium (136-145) mmol/L Potassium (3.5-5.1) mmol/L Chloride (98-107) mmol/L Carbon Dioxide (21.0-32.0) mmol/L BUN (7-18) mg/dL Creatinine (0.51-1.17) mg/dL Est Cr Clr Drug Dosing Estimated GFR (MDRD) mL/min Glucose (70-99) mg/dL Lactic Acid (0.4-2.0) mmol/L Uric Acid (2.6-7.2) mg/dL Calcium (8.5-10.1) mg/dL Magnesium (1.8-2.4) mg/dL Total Bilirubin (0.2-1.0) mg/dL AST (15-37) U/L ALT (12-78) U/L Alkaline Phosphatase (46-116) IU/L Creatine Kinase (26-308) U/L Creatine Kinase Index (0.0-2.5) % CK-MB (CK-2) (0.00-3.60) ng/mL Troponin I (0.000-0.056) ng/mL NT-Pro-B Natriuret Pep (0-125) pg/mL Total Protein (6.4-8.2) g/dL Albumin (3.4-5.0) g/dL TSH, Ultra Sensitive (0.358-3.740) mIU/mL 01/01/21 01/01/21 Range/Units 09:30 09:30 WBC (4.0-10.2) K/uL RBC (4.33-5.41) M/uL Hgb (13.1-16.8) g/dL Hct (39.0-49.0) % MCV (84.0-98.0) fL MCH (28.2-33.3) pg MCHC (31.7-36.0) g/dL RDW (11.2-14.1) % Plt Count (150-350) K/uL Neut % (Auto) (45.0-80.0) % Lymph % (Auto) (10.0-50.0) % [place] % (Auto) (2.0-14.0) % Eos % (Auto) (0.0-5.0) % Baso % (Auto) (0.0-2.0) % Neut # (Auto) (1.40-7.00) K/uL Lymph # (Auto) (0.50-3.50) K/uL [place] # (Auto) (0.00-1.00) K/uL Eos # (Auto) (0.00-0.50) K/uL Baso # (Auto) (0.00-0.20) K/uL PT (9.5-12.0) SEC INR APTT (24.5-32.8) SEC D-Dimer, Quantitative (0-400) ng/mL Sodium 134 L (136-145) mmol/L Potassium 3.9 (3.5-5.1) mmol/L Chloride 97 L (98-107) mmol/L Carbon Dioxide 25.4 (21.0-32.0) mmol/L BUN 18 (7-18) mg/dL Creatinine 0.93 (0.51-1.17) mg/dL Est Cr Clr Drug Dosing TNP Estimated GFR (MDRD) > 60 mL/min Glucose 156 H (70-99) mg/dL Lactic Acid 0.9 (0.4-2.0) mmol/L Uric Acid 5.1 (2.6-7.2) mg/dL Calcium 8.7 (8.5-10.1) mg/dL Magnesium 1.8 (1.8-2.4) mg/dL Total Bilirubin 1.0 (0.2-1.0) mg/dL AST 19 (15-37) U/L ALT 18 (12-78) U/L Alkaline Phosphatase 70 (46-116) IU/L Creatine Kinase 77 (26-308) U/L Creatine Kinase Index 0.8 (0.0-2.5) % CK-MB (CK-2) 0.60 (0.00-3.60) ng/mL Troponin I 0.000 (0.000-0.056) ng/mL NT-Pro-B Natriuret Pep 235 H (0-125) pg/mL Total Protein 6.6 (6.4-8.2) g/dL Albumin 2.9 L (3.4-5.0) g/dL TSH, Ultra Sensitive 0.857 (0.358-3.740) mIU/mL Meds: Medications Generic Name Dose Route Start Last Admin Trade Name Humberto PRN Reason Stop Dose Admin Sodium Chloride 10 ml 01/01/21 09:19 01/01/21 09:34 Sodium Chloride 0.9% 10 Ml Syringe FLUSH 10 ml ASDIRECTED PRN Administration Keep Vein Open Discontinued Medications Generic Name Dose Route Start Last Admin Trade Name Humberto PRN Reason Stop Dose Admin Famotidine 40 mg 01/01/21 09:19 01/01/21 09:33 Famotidine 20 Mg/2 Ml Sdv IVPUSH 01/01/21 09:20 40 mg ONETIME ONE Administration Iopamidol 100 ml 01/01/21 10:27 01/01/21 10:47 Iopamidol 755 Mg/Ml 100 Ml Bottle IVPUSH 01/01/21 10:28 100 ml ONETIME ONE Administration Morphine Sulfate 1 mg 01/01/21 09:41 01/01/21 09:46 Morphine 2 Mg/Ml Syringe IVPUSH 01/01/21 09:42 1 mg ONETIME ONE Administration Ondansetron HCl 4 mg 01/01/21 09:41 01/01/21 09:45 Ondansetron 4 Mg/2 Ml Sdv IVPUSH 01/01/21 09:42 4 mg ONETIME ONE Administration - Radiology Interpretation Free Text/Narrative:: campus monitor shows normal sinus rhythm in the 80-90s with occasional mild borderline tachycardia in the low 100s with movement activity with no extrasystoles or other arrhythmia. Chest x-ray, portable, shows mildly elevated right hemidiaphragm with moderate infiltrates, atelectasis and/or beginning consolidation and fibrosis with previous pulmonary carcinoma difficult to assess secondary to these changes. No significant cardiomegaly with only mild prominence of the proximal aortic arch. Mild pulmonary obstructive disease with probable pulmonary hypertension and/or mild CHF. No pneumothorax noted. Telephone consultation at 11:12 AM with the radiology department at [facility]. Preliminary verbal report of CTA of the chest using PE protocol was negative for PE. Incidental findings include previously known right lower lobe lung cancer with moderate mediastinal lymphadenopathy, mild bilateral pleural effusions, fibrotic changes of the right lower lobe consistent with his cancer with no direct evidence of pneumonia, and additional nonspecific gallbladder enlargement. CT Results Date: 01/01/21 CT Results Time: 11:12 Departure - Departure Time of Disposition: 13:06 Disposition: DC/Tfer to [facility] 02 Reason for Transfer *Q: Other (Cardiology consultation by accepting providers) Clinical Impression: Mixed anxiety depressive disorder, Peptic reflux disease, D-dimer, elevated, Hypoalbuminemia, Hyponatremia Osteoarthritis Qualifiers: Osteoarthritis location: multiple joints Osteoarthritis type: primary Qualified Code(s): M89.49 - Other hypertrophic osteoarthropathy, multiple sites Lung cancer Qualifiers: Laterality: right Lung location: lower lobe of lung Qualified Code(s): C34.31 - Malignant neoplasm of lower lobe, right bronchus or lung Chest pain Qualifiers: Chest pain type: precordial pain Qualified Code(s): R07.2 - Precordial pain Anemia Qualifiers: Anemia type: unspecified type Qualified Code(s): D64.9 - Anemia, unspecified CHF (congestive heart failure) Qualifiers: Heart failure type: unspecified Heart failure chronicity: acute Qualified Code(s): I50.9 - Heart failure, unspecified Referrals: Zaida Jimenez PA [Primary Care Provider] - Forms: ED Department Discharge, Interfacility Transfer [facility] Sepsis Event Note (ED) - Evaluation Sepsis Screening Result: Possible Sepsis Risk - Focused Exam Vital Signs: Vital Signs Temp Pulse Resp BP BP Pulse Ox 01/01/21 12:38 87 21 H 104/66 93 L 01/01/21 12:23 86 20 103/53 L 93 L 01/01/21 12:08 86 22 H 109/53 L 93 L 01/01/21 11:53 88 20 103/55 L 93 L 01/01/21 11:38 89 21 H 113/56 L 93 L 01/01/21 11:23 89 26 H 119/58 L 26 L 01/01/21 11:08 90 18 101/52 L 93 L 01/01/21 10:53 88 24 H 120/56 L 94 L 01/01/21 10:25 84 26 H 105/58 L 93 L 01/01/21 09:59 89 100/60 93 L 01/01/21 09:44 91 27 H 109/55 L 92 L 01/01/21 09:29 97 31 H 128/69 93 L 01/01/21 09:14 98 29 H 117/60 93 L 01/01/21 09:12 37.2 C 93 27 H 138/71 93 L - Problem List & Annotations (1) Chest pain SNOMED Code(s): 05886883 Code(s): R07.9 - CHEST PAIN, UNSPECIFIED Status: Acute Priority: High Current Visit: No Onset Date: 01/01/21 Annotation/Comment:: Various therapeutic options were discussed with the patient his , who are requesting that he be transferred to [facility] in [place]. Telephone consultation at 11:[address] Norton, emergency room physician at [facility] in [place], who does agree to accept the patient for further treatment and evaluation, with no further treatment recommendations given. He also agrees to contact their hospitalist concerning this patient transfer. The patient was chest pain free at time of his transfer with overall stable vital signs and clinical exam prior to transfer. Ambulance transfer with electrical cad designer accompaniment. Chest pain protocol initiated immediately upon patient's arrival to the emergency room. Symptoms are somewhat atypical possibly secondary to his current lung cancer. Note current Eliquis therapy with aspirin and Brilinta not given immediately on arrival to this facility. IV Zofran and IV morphine given for additional pain control with patient taking 2 oxycodone prior to arrival. EKG is normal with normal cardiac enzymes with exception of mildly elevated BNP as below. Likely cardiology consultation with initiation of standard rule out [place] orders by accepting providers. Emotional support provided. Qualifiers: Chest pain type: precordial pain Qualified Code(s): R07.2 - Precordial pain (2) CHF (congestive heart failure) SNOMED Code(s): 78854981 Code(s): I50.9 - HEART FAILURE, UNSPECIFIED Status: Acute Priority: High Current Visit: No Onset Date: 01/01/21 Annotation/Comment:: Borderline CHF by chest x-ray, clinical exam, and BNP. Note somewhat low blood pressures with observation for now and no initiation of IV Lasix prior to patient's transfer. His cardiac enzymes are otherwise normal. Further work-up including possible echocardiogram, etc. depending on his clinical course. Note evidence of mild bilateral pleural effusions left greater than right by CT of the chest as above. Qualifiers: Heart failure type: unspecified Heart failure chronicity: acute Qualified Code(s): I50.9 - Heart failure, unspecified (3) D-dimer, elevated SNOMED Code(s): 769873090 Code(s): R79.89 - OTHER SPECIFIED ABNORMAL FINDINGS OF BLOOD CHEMISTRY Status: Acute Priority: High Current Visit: No Onset Date: 01/01/21 Annotation/Comment:: CTA of the chest results as above with no direct evidence of PE. Consider venous Doppler studies of the lower extremities by accepting providers. Note current chemotherapy and previous history of DVT and bilateral PEs as above. No direct clinical evidence of DVT or PE by clinical exam today. Note current Eliquis therapy. (4) Lung cancer SNOMED Code(s): 352200575 Code(s): C34.90 - MALIGNANT NEOPLASM OF UNSP PART OF UNSP BRONCHUS OR LUNG Status: Chronic Priority: Medium Current Visit: No Annotation/Comment:: Currently under therapy as above. No recent fever or bronchitic type symptoms. No leukocytosis with normal lactic acid level and no direct evidence of infection despite his current chemotherapy. Qualifiers: Laterality: right Lung location: lower lobe of lung Qualified Code(s): C34.31 - Malignant neoplasm of lower lobe, right bronchus or lung (5) Mixed anxiety depressive disorder SNOMED Code(s): 953293931 Code(s): F41.8 - OTHER SPECIFIED ANXIETY DISORDERS Status: Chronic Priority: Medium Current Visit: No Annotation/Comment:: Stable by history, although somewhat moderate control based on today's evaluation. Continue to observe closely by his regular providers. (6) Osteoarthritis SNOMED Code(s): 324623944 Code(s): M19.90 - UNSPECIFIED OSTEOARTHRITIS, UNSPECIFIED SITE Status: Chronic Priority: Medium Current Visit: No Annotation/Comment:: Otherwise stable by history with no recent history of fall or injury. Qualifiers: Osteoarthritis location: multiple joints Osteoarthritis type: primary Qualified Code(s): M89.49 - Other hypertrophic osteoarthropathy, multiple sites (7) Peptic reflux disease SNOMED Code(s): 384222562 Code(s): K21.9 - GASTRO-ESOPHAGEAL REFLUX DISEASE WITHOUT ESOPHAGITIS Status: Chronic Priority: Medium Current Visit: No Annotation/Comment:: High-dose IV Pepcid given in the emergency room and GI prophylaxis. Note current Eliquis therapy secondary to his history of DVT and bilateral PEs. Stable by history. (8) Anemia SNOMED Code(s): 631941920 Code(s): D64.9 - ANEMIA, UNSPECIFIED Status: Acute Priority: Medium Current Visit: No Annotation/Comment:: Mild with no evidence of acute GI bleed as above. Note current chemotherapy. Qualifiers: Anemia type: unspecified type Qualified Code(s): D64.9 - Anemia, unspecified (9) Hypoalbuminemia SNOMED Code(s): 028918865 Code(s): E88.09 - [facility] DISORDERS OF PLASMA-PROTEIN METABOLISM, NEC Status: Acute Priority: Medium Current Visit: No Onset Date: 01/01/21 Annotation/Comment:: Observe for now (10) Hyponatremia SNOMED Code(s): 96548681 Code(s): E87.1 - HYPO-OSMOLALITY AND HYPONATREMIA Status: Acute Priority: Medium Current Visit: No Onset Date: 01/01/21 Annotation/Comment:: Mild possibly secondary to his CHF. Observe for now. - Problem List Review Problem List Initiated/Reviewed/Updated: Yes - My Orders Last 24 Hours: My Active Orders 01/01/21 Breakfast Nothing per Oral Now Diet [DIET] 01/01/21 09:19 Sodium Chloride 0.9% [Saline Flush] 10 ml FLUSH ASDIRECTED PRN Resuscitation Status Stat 01/01/21 09:20 Cardiac Monitoring [RC] . DIRECTED EKG Documentation Completion [RC] ASDIRECTED Oxygen Therapy, ED [RC] PRN Peripheral IV Care [RC] . DIRECTED Pulse Oximetry [RC] CONTINUOUS Up With Assistance [RC] PFP Vital Signs [RC] PFP Chest 1V Frontal [CR] Stat Obtain Past Medical Record [OM.PC] Urgent Peripheral IV Insertion Adult [OM.PC] Stat 01/01/21 10:24 Chest PE [Ang Chest] [CT] Stat - Assessment/Plan Last 24 Hours: My Active Orders 01/01/21 Breakfast Nothing per Oral Now Diet [DIET] 01/01/21 09:19 Sodium Chloride 0.9% [Saline Flush] 10 ml FLUSH ASDIRECTED PRN Resuscitation Status Stat 01/01/21 09:20 Cardiac Monitoring [RC] . DIRECTED EKG Documentation Completion [RC] ASDIRECTED Oxygen Therapy, ED [RC] PRN Peripheral IV Care [RC] . DIRECTED Pulse Oximetry [RC] CONTINUOUS Up With Assistance [RC] PFP Vital Signs [RC] PFP Chest 1V Frontal [CR] Stat Obtain Past Medical Record [OM.PC] Urgent Peripheral IV Insertion Adult [OM.PC] Stat 01/01/21 10:24 Chest PE [Ang Chest] [CT] Stat Assessment:: As above Plan: As above. Extensive precautions were given to the patient and his , who are in agreement with the treatment plan. Ambulance transfer with electrical cad designer accompaniment as above.
[2021-01-01] MEDS ORDERED: Ondansetron 4 MG/2 ML SDV IVPUSH ONE (09:41)
[2021-01-01] MEDS ORDERED: Morphine 2 MG/ML SYRINGE IVPUSH ONE (09:41)
[2021-01-01 09:55] LABS: PTT,PARTIAL THROMBOPLSTIN TIME 35.7 SEC (24.5-32.8)
[2021-01-01 10:22] LABS: CHLORIDE,CL 97 mmol/L (98-107); SODIUM,NA 134 mmol/L (136-145)
[2021-01-01] MEDS ORDERED: Iopamidol 755 Mg/ML 100 ML Bottle IVPUSH ONE (10:27)
== END 2021-01-01 13:06 ==
LOC: LL.ED 09:11
DX: C34.91 Malignant neoplasm of unspecified part of right bronchus or lung (principal); F41.8 Other specified anxiety disorders; K21.9 Gastro-esophageal reflux disease without esophagitis; R79.1 Abnormal coagulation profile; E88.09 Other disorders of plasma-protein metabolism, not elsewhere classified; E87.1 Hypo-osmolality and hyponatremia; M89.49 Other hypertrophic osteoarthropathy, multiple sites; D64.9 Anemia, unspecified; I50.9 Heart failure, unspecified; Z87.891 Personal history of nicotine dependence; Z86.718 Personal history of other venous thrombosis and embolism; Z86.711 Personal history of pulmonary embolism; Z91.030 Bee allergy status; Z88.0 Allergy status to penicillin; Z79.01 Long term (current) use of anticoagulants; Z79.899 Other long term (current) drug therapy
CPT/HCPCS: 36415; 71045; 71275; 80053; 82550; 82553; 83605; 83735; 83880; 84443; 84484; 84550; 85025; 85379; 85610; 85730; 93005; 96374; 96375; 99285-25; J2270; J2405; J3490; Q9967

== ENCOUNTER 2021-02-18 18:16 | Emergency (ER) | payer MEDICARE, BC ==
--- NOTE | 2021-02-18 19:11 | EDM.PDOC ---
ED HPI GENERAL MEDICAL PROBLEM - General Chief Complaint: Fever Stated Complaint: fever Time Seen by Provider: 02/18/21 18:35 Source of Information: Reports: Patient, Family History Limitations: Reports: No Limitations - History of Present Illness INITIAL COMMENTS - FREE TEXT/NARRATIVE: Patient brought in by to the ER to be checked out for an elevated temp noted at home. says patient was chilled and sat under multiple blankets. She eventually took his temp and it was 103. She was not certain if it was the blankets that caused the temp elevation or if patient is actually coming down with an illness. He is immunosuppressed/on chemo for non-small cell lung CA. Patient says he feels fine and denies any changes at all. Did not want to come to ER. Says it was an otherwise normal day for him. 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 Other Treatments H[employer] SCHOOL SPECIAL EDUCATION TEACHER: (2) extended release tylenol - Related Data Allergies Allergy/AdvReac Type Severity Reaction Status Date / Time bee venom protein (honey bee) Allergy Unknown Other Verified 02/18/21 19:14 Penicillins Allergy Unknown Other Verified 02/18/21 19:14 Home Meds: Home Meds Calcium Carbonate/Vitamin D3 [Calcium 600Mg-D3 400 Unit Sfgl] 1 each PO BID 10/27/18 [History] Multivit with Calcium,Iron,Min [Essential Daily] 1 each PO DAILY 10/27/18 [History] Sertraline [Zoloft] 25 mg PO DAILY 10/27/18 [History] Apixaban [Eliquis] 2.5 mg PO BID 12/14/20 [History] dexAMETHasone [Dexamethasone] 4 mg PO ASDIRECTED PRN 12/14/20 [History] levETIRAcetam [Keppra] 500 mg PO BID 12/14/20 [History] oxyCODONE 5 mg PO Q4HR PRN 12/14/20 [History] Acetaminophen [Tylenol Arthritis] 2 tab PO ASDIRECTED 01/01/21 [History] amLODIPine [Norvasc] 1 tab PO DAILY 02/18/21 [History] Past Medical History HEENT History: Reports: Cataract, Impaired Vision, Other (See Below) Other HEENT History: 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 Patient wears glasses. Cataracts with no surgery to this point. Cardiovascular History: Reports: Blood Clots/VTE/DVT, High Cholesterol, Other (See Below) Other Cardiovascular History: DVT of the right popliteal region with secondary bilateral PEs in October 2017 with current Eliquis therapy. Respiratory History: Reports: Intubation, Previous, PE, Other (See Below) Other Respiratory History: PE as above. Right-sided Port-A-Cath placement in October 2017. Right lower lobe lung cancer with current chemotherapy and no previous radiation therapy. Gastrointestinal History: Reports: Diverticulosis, Gastritis, GERD, Other (See Below) Other Gastrointestinal History: Sigmoid diverticulosis by CT scan. Benign hepatic cysts by CT scan. Genitourinary History: Reports: BPH, Prostate Disorder, Other (See Below) Other Genitourinary History: Prostate and bladder cancer as below. Benign renal cysts by CT scan. Musculoskeletal History: Reports: Arthritis, Back Pain, Chronic, Fracture, Osteoarthritis, Other (See Below) Other Musculoskeletal History: Left lateral malleolar fracture in October 2001. Previous chronic T12 and L1 vertebral body compression fractures. Neurological History: Reports: Concussion, Head Trauma, Vertigo, Other (See Below) Other Neuro History: Head concussion X 1 in about 1979. Benign positional vertigo. 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 Prostate cancer in 2016 with previous prostate biopsy and hormonal therapy. 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 Unknown type of bladder cancer in 2003 with BCG therapy. Dermatologic History: Reports: None - Infectious Disease History Infectious Disease History: Reports: Chicken Pox - Past Surgical History Head Surgeries/Procedures: Reports: None HEENT Surgical History: Reports: Adenoidectomy, Eye Surgery, Oral Surgery, Tonsillectomy, Other (See Below) Other HEENT Surgeries/Procedures: Tonsillectomy and adenoidectomy at about age 5. Pterygium removal of the right eye in his 40s. [place] teeth extraction with additional tooth extractions. Cardiovascular Surgical History: Reports: Other (See Below) Other Cardiovascular Surgeries/Procedures: Right-sided Port-A-Cath placement in October 2017. Respiratory Surgical History: Reports: Lung Biopsies, Thoracentesis, Other (See Below) Other Respiratory Surgeries/Procedures: Lung biopsies for lung cancer with subsequent right sided pleurodesis in April 2018. GI Surgical History: Reports: Colonoscopy, EGD, Other (See Below) Other GI Surgeries/Procedures: Last Colonoscopy in about 2012. EGD in September 2017. Male Surgical History: Reports: Circumcision, Prostate Biopsy Other Male Surgeries/Procedures: Circumcision as an . Prostate biopsies for prostate cancer as above. Cystoscopy on 02/28/04. Endocrine Surgical History: Reports: None Neurological Surgical History: Reports: None Musculoskeletal Surgical History: Reports: Arthroscopic Procedure, Joint Replacement, Knee Replacement, Shoulder Surgery, Other (See Below) Other Musculoskeletal Surgeries/Procedures:: Bilateral total knee arthroplasty in 2010. Arthroscopic right shoulder surgery in about 2003. Oncologic Surgical History: Reports: Other (See Below) Other Oncologic Surgeries/Procedures: As above Dermatological Surgical History: Reports: Other (See Below) - Past Imaging History Past Imaging History: Reports: CAT Scan (CT of the chest, abdomen, and pelvis on 10/02/17.), MRI (MRI of the thoracic and lumbar spine on 01/29/11), Other (See Below) (IVP on 02/06/04) Social & Family History - Caffeine Use Caffeine Use: Reports: None - Living Situation & Occupation Living situation: Reports: (1966. 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 Denies: Malaise, Weakness, Night Sweats, Diaphoresis, Decreased Appetite HEENT: Reports: No Symptoms, Glasses Respiratory: Reports: Other (has some chronic SOB but otherwise no changes). Denies: Cough Cardiovascular: Reports: No Symptoms. Denies: Chest Pain GI/Abdominal: Reports: No Symptoms : Reports: No Symptoms Musculoskeletal: Reports: Other (no acute changes) Skin: Reports: No Symptoms Neurological: Reports: No Symptoms Psychiatric: Reports: No Symptoms ED EXAM, GENERAL - Physical Exam Exam: See Below Exam Limited By: No Limitations General Appearance: Alert, WD/WN, No Apparent Distress Eye Exam: Bilateral Eye: EOMI, PERRL Ears: Hearing Grossly Normal Nose: No: Nasal Deformity, Nasal Swelling, Nasal Drainage Throat/Mouth: Normal Lips, Normal Voice, No Airway Compromise Head: Atraumatic, Normocephalic Neck: Supple, Non-Tender, Full Range of Motion Respiratory/Chest: No Respiratory Distress, Lungs Clear, No Accessory Muscle Use, Chest Non-Tender, Other (BS slightly diminished right lower lung) Cardiovascular: Regular Rate, Rhythm, No Murmur GI/Abdominal: Normal Bowel Sounds, Soft, Non-Tender, No Distention (Male) Exam: Deferred Rectal (Males) Exam: Deferred Back Exam: No: CVA Tenderness (L), CVA Tenderness (R), Muscle Spasm Extremities: Non-Tender, Normal Capillary Refill Neurological: Alert, Oriented, Normal Cognition, Normal Gait, No Motor/Sensory Deficits Psychiatric: Normal Affect, Normal Mood Skin Exam: Warm, Dry, Intact, Normal Color Course - Vital Signs Last Recorded V/S: Last Vital Signs Temp 37.9 C 02/18/21 18:17 Pulse 107 H 02/18/21 18:50 Resp 18 02/18/21 18:50 BP 105/52 L 02/18/21 18:50 Pulse Ox 93 L 02/18/21 18:50 - Orders/Labs/Meds Orders: Active Orders 24 hr Category Date Time Status Chest 2V [CR] Stat Exams 02/18/21 18:43 Taken Labs: Laboratory Tests 02/18/21 02/18/21 02/18/21 Range/Units 18:50 18:50 18:50 WBC 9.4 (4.0-10.2) K/uL RBC 3.64 L (4.33-5.41) M/uL Hgb 11.0 L D (13.1-16.8) g/dL Hct 34.1 L (39.0-49.0) % MCV 93.7 (84.0-98.0) fL MCH 30.2 (28.2-33.3) pg MCHC 32.3 (31.7-36.0) g/dL RDW 15.8 H (11.2-14.1) % Plt Count 244 (150-350) K/uL Neut % (Auto) 92.0 H (45.0-80.0) % Lymph % (Auto) 4.8 L (10.0-50.0) % [place] % (Auto) 2.3 (2.0-14.0) % Eos % (Auto) 0.7 (0.0-5.0) % Baso % (Auto) 0.2 (0.0-2.0) % Neut # (Auto) 8.64 H (1.40-7.00) K/uL Lymph # (Auto) 0.45 L (0.50-3.50) K/uL [place] # (Auto) 0.22 (0.00-1.00) K/uL Eos # (Auto) 0.07 (0.00-0.50) K/uL Baso # (Auto) 0.02 (0.00-0.20) K/uL Sodium 136 (136-145) mmol/L Potassium 4.0 (3.5-5.1) mmol/L Chloride 99 (98-107) mmol/L Carbon Dioxide 23.9 (21.0-32.0) mmol/L BUN 23 H (7-18) mg/dL Creatinine 0.86 (0.51-1.17) mg/dL Est Cr Clr Drug Dosing 66.97 mL/min Estimated GFR (MDRD) > 60 mL/min Glucose 135 H (70-99) mg/dL Lactic Acid 0.6 (0.4-2.0) mmol/L Calcium 9.3 (8.5-10.1) mg/dL Total Bilirubin 0.8 (0.2-1.0) mg/dL AST 22 (15-37) U/L ALT 25 (12-78) U/L Alkaline Phosphatase 72 (46-116) IU/L Total Protein 6.6 (6.4-8.2) g/dL Albumin 3.0 L (3.4-5.0) g/dL Specimen Type Urine Color (YELLOW) Urine Appearance (CLEAR) Urine pH (5.0-9.0) Ur Specific [place] (1.005-1.030) Urine Protein (NEGATIVE) mg/dL Urine Glucose (UA) (NEGATIVE) mg/dL Urine Ketones (NEGATIVE) mg/dL Urine Occult Blood (NEGATIVE) Urine Nitrite (NEGATIVE) Urine Bilirubin (NEGATIVE) Urine Urobilinogen (0.2-1.0) E.U./dL Ur Leukocyte Esterase (NEGATIVE) U Hyaline Cast (Auto) Urine RBC /HPF Urine WBC /HPF Ur Epithelial Cells /LPF Amorphous Sediment (0/HPF) /HPF Urine Bacteria (NONE TO FEW) /HPF 02/18/21 Range/Units 19:26 WBC (4.0-10.2) K/uL RBC (4.33-5.41) M/uL Hgb (13.1-16.8) g/dL Hct (39.0-49.0) % MCV (84.0-98.0) fL MCH (28.2-33.3) pg MCHC (31.7-36.0) g/dL RDW (11.2-14.1) % Plt Count (150-350) K/uL Neut % (Auto) (45.0-80.0) % Lymph % (Auto) (10.0-50.0) % [place] % (Auto) (2.0-14.0) % Eos % (Auto) (0.0-5.0) % Baso % (Auto) (0.0-2.0) % Neut # (Auto) (1.40-7.00) K/uL Lymph # (Auto) (0.50-3.50) K/uL [place] # (Auto) (0.00-1.00) K/uL Eos # (Auto) (0.00-0.50) K/uL Baso # (Auto) (0.00-0.20) K/uL Sodium (136-145) mmol/L Potassium (3.5-5.1) mmol/L Chloride (98-107) mmol/L Carbon Dioxide (21.0-32.0) mmol/L BUN (7-18) mg/dL Creatinine (0.51-1.17) mg/dL Est Cr Clr Drug Dosing mL/min Estimated GFR (MDRD) mL/min Glucose (70-99) mg/dL Lactic Acid (0.4-2.0) mmol/L Calcium (8.5-10.1) mg/dL Total Bilirubin (0.2-1.0) mg/dL AST (15-37) U/L ALT (12-78) U/L Alkaline Phosphatase (46-116) IU/L Total Protein (6.4-8.2) g/dL Albumin (3.4-5.0) g/dL Specimen Type Urinblad Urine Color Dark yellow H (YELLOW) Urine Appearance Clear (CLEAR) Urine pH 6.5 (5.0-9.0) Ur Specific [place] 1.020 (1.005-1.030) Urine Protein 100 H (NEGATIVE) mg/dL Urine Glucose (UA) Negative (NEGATIVE) mg/dL Urine Ketones Negative (NEGATIVE) mg/dL Urine Occult Blood Negative (NEGATIVE) Urine Nitrite Negative (NEGATIVE) Urine Bilirubin Negative (NEGATIVE) Urine Urobilinogen 0.2 (0.2-1.0) E.U./dL Ur Leukocyte Esterase Negative (NEGATIVE) U Hyaline Cast (Auto) Few Urine RBC 0-5 /HPF Urine WBC 0-5 /HPF Ur Epithelial Cells Few /LPF Amorphous Sediment Few (0/HPF) /HPF Urine Bacteria Few (NONE TO FEW) /HPF - Re-Assessments/Exams Free Text/Narrative Re-Assessment/Exam: 02/18/21 20:02 CBC/Chem/UA/lactic acid overall unremarkable. Chest xray did not appear to show any acute changes. Patient did have pneumonia in December and lungs are improved when compared to previous films. Pending Radiology review. O2 sats 93-94%. This is not unusual for patient when chart reviewed. Also some heart rate elevation noted, but again his rate has run high previously. Patient's indicates that it has varied in past. She feels that the current chemo is causing too many side effects and says that the patient just does not feel good overall on a daily basis since starting the medication. No obvious new infection identified at this time. Offered to contact the credit relationship manager Oncologist at [facility] to touch base but patient would rather go home. Plan at this time is to have him observe closely for exchange trouble shooter the next 24-48 hours and be rechecked if further problems develop. Recommend he touch base with Oncology clinic tomorrow. Departure - Departure Time of Disposition: 19:57 Disposition: Home, Self-Care 01 Condition: Good Clinical Impression: Fever Qualifiers: Fever type: unspecified Qualified Code(s): R50.9 - Fever, unspecified - Discharge Information *PRESCRIPTION DRUG MONITORING PROGRAM REVIEWED*: Not Applicable *COPY OF PRESCRIPTION DRUG MONITORING REPORT IN PATIENT TONJA: Not Applicable Referrals: Tony,Zaida L, PA [Primary Care Provider] - Forms: ED Department Discharge Additional Instructions: observe closely for any additional changes/fevers over the next 24-48 hours. If you spot any signs of a developing illness follow up with your clinic/cancer providers or return to ER. Sepsis Event Note (ED) - Evaluation Sepsis Screening Result: No Definite Risk - Focused Exam Vital Signs: Vital Signs Temp Pulse Resp BP Pulse Ox 02/18/21 18:50 107 H 18 105/52 L 93 L 02/18/21 18:17 37.9 C 114 H 16 113/54 L 93 L - My Orders Last 24 Hours: My Active Orders 02/18/21 18:43 Chest 2V [CR] Stat - Assessment/Plan Last 24 Hours: My Active Orders 02/18/21 18:43 Chest 2V [CR] Stat
[2021-02-18 19:18] LABS: CHLORIDE,CL 99 mmol/L (98-107); SODIUM,NA 136 mmol/L (136-145)
== END 2021-02-18 20:15 | disposition home or self-care (01) ==
LOC: LL.ED 18:16
DX: R50.9 Fever, unspecified (principal); Z88.0 Allergy status to penicillin; Z91.030 Bee allergy status; Z86.711 Personal history of pulmonary embolism; Z79.01 Long term (current) use of anticoagulants
CPT/HCPCS: 36415; 71046; 80053; 81001; 83605; 85025; 99284; 99284-25

== ENCOUNTER 2021-06-06 10:45 | Emergency (ER) | payer MEDICARE, BC ==
--- NOTE | 2021-06-06 11:39 | EDM.PDOC ---
ED HPI GENERAL MEDICAL PROBLEM - General Chief Complaint: General Stated Complaint: fall Time Seen by Provider: 06/06/21 11:15 Source of Information: Reports: Patient, Family History Limitations: Reports: No Limitations - History of Present Illness INITIAL COMMENTS - FREE TEXT/NARRATIVE: Patient slipped/fell while walking. On concrete. Has small superficial laceration above right eye from eyeglass frame. No LOC. Mild soreness right chest. No other complaints/injuries/acute changes during ROS. Is on Eliquis. He took one of his pain pills at home before coming to ER. Right Head Pain Score (Numeric/FACES): 2 - Related Data Allergies Allergy/AdvReac Type Severity Reaction Status Date / Time bee venom protein (honey bee) Allergy Unknown Other Verified 06/06/21 10:54 Penicillins Allergy Unknown Other Verified 06/06/21 10:54 Home Meds: Home Meds Calcium Carbonate/Vitamin D3 [Calcium 600Mg-D3 400 Unit Sfgl] 1 each PO BID 10/27/18 [History] Multivit with Calcium,Iron,Min [Essential Daily] 1 each PO DAILY 10/27/18 [History] Sertraline [Zoloft] 25 mg PO DAILY 10/27/18 [History] Apixaban [Eliquis] 2.5 mg PO BID 12/14/20 [History] dexAMETHasone [Dexamethasone] 4 mg PO ASDIRECTED PRN 12/14/20 [History] levETIRAcetam [Keppra] 500 mg PO BID 12/14/20 [History] oxyCODONE 5 mg PO Q4HR PRN 12/14/20 [History] Acetaminophen [Tylenol Arthritis] 2 tab PO ASDIRECTED 01/01/21 [History] amLODIPine [Norvasc] 1 tab PO DAILY 02/18/21 [History] Past Medical History HEENT History: Reports: Cataract, Impaired Vision, Other (See Below) Other HEENT History: 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 Patient wears glasses. Cataracts with no surgery to this point. Cardiovascular History: Reports: Blood Clots/VTE/DVT, High Cholesterol, Other (See Below) Other Cardiovascular History: DVT of the right popliteal region with secondary bilateral PEs in October 2017 with current Eliquis therapy. Respiratory History: Reports: Intubation, Previous, PE, Other (See Below) Other Respiratory History: PE as above. Right-sided Port-A-Cath placement in October 2017. Right lower lobe lung cancer with current chemotherapy and no previous radiation therapy. Gastrointestinal History: Reports: Diverticulosis, Gastritis, GERD, Other (See Below) Other Gastrointestinal History: Sigmoid diverticulosis by CT scan. Benign hepatic cysts by CT scan. Genitourinary History: Reports: BPH, Prostate Disorder, Other (See Below) Other Genitourinary History: Prostate and bladder cancer as below. Benign renal cysts by CT scan. Musculoskeletal History: Reports: Arthritis, Back Pain, Chronic, Fracture, Osteoarthritis, Other (See Below) Other Musculoskeletal History: Left lateral malleolar fracture in October 2001. Previous chronic T12 and L1 vertebral body compression fractures. Neurological History: Reports: Concussion, Head Trauma, Vertigo, Other (See Below) Other Neuro History: Head concussion X 1 in about 1979. Benign positional vertigo. 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 Prostate cancer in 2016 with previous prostate biopsy and hormonal therapy. 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 Unknown type of bladder cancer in 2003 with BCG therapy. Dermatologic History: Reports: None - Infectious Disease History Infectious Disease History: Reports: Chicken Pox - Past Surgical History Head Surgeries/Procedures: Reports: None HEENT Surgical History: Reports: Adenoidectomy, Eye Surgery, Oral Surgery, Tonsillectomy, Other (See Below) Other HEENT Surgeries/Procedures: Tonsillectomy and adenoidectomy at about age 5. Pterygium removal of the right eye in his 40s. [place] teeth extraction with additional tooth extractions. Cardiovascular Surgical History: Reports: Other (See Below) Other Cardiovascular Surgeries/Procedures: Right-sided Port-A-Cath placement in October 2017. Respiratory Surgical History: Reports: Lung Biopsies, Thoracentesis, Other (See Below) Other Respiratory Surgeries/Procedures: Lung biopsies for lung cancer with subsequent right sided pleurodesis in April 2018. GI Surgical History: Reports: Colonoscopy, EGD, Other (See Below) Other GI Surgeries/Procedures: Last Colonoscopy in about 2012. EGD in September 2017. Male Surgical History: Reports: Circumcision, Prostate Biopsy Other Male Surgeries/Procedures: Circumcision as an infant. Prostate biopsies for prostate cancer as above. Cystoscopy on 02/28/04. Endocrine Surgical History: Reports: None Neurological Surgical History: Reports: None Musculoskeletal Surgical History: Reports: Arthroscopic Procedure, Joint Replacement, Knee Replacement, Shoulder Surgery, Other (See Below) Other Musculoskeletal Surgeries/Procedures:: Bilateral total knee arthroplasty in 2010. Arthroscopic right shoulder surgery in about 2003. Oncologic Surgical History: Reports: Other (See Below) Other Oncologic Surgeries/Procedures: As above Dermatological Surgical History: Reports: Other (See Below) - Past Imaging History Past Imaging History: Reports: CAT Scan (CT of the chest, abdomen, and pelvis on 10/02/17.), MRI (MRI of the thoracic and lumbar spine on 01/29/11), Other (See Below) (IVP on 02/06/04) Social & Family History - Caffeine Use Caffeine Use: Reports: None - Living Situation & Occupation Living situation: Reports: (1966. 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 ED EXAM, GENERAL - Physical Exam Exam: See Below Exam Limited By: No Limitations General Appearance: Alert, WD/WN, No Apparent Distress Eye Exam: Bilateral Eye: EOMI, PERRL Ears: Normal External Exam, Normal Canal, Hearing Grossly Normal Nose: No: Nasal Deformity, Nasal Swelling, Nasal Drainage Throat/Mouth: Normal Lips, Normal Voice, No Airway Compromise Head: Other (small superficial laceration above/lateral to right eye. No swelling or deformity) Neck: Normal Inspection, Supple, Non-Tender, Full Range of Motion Respiratory/Chest: No Respiratory Distress, Lungs Clear, Normal Breath Sounds, No Accessory Muscle Use, Chest Non-Tender Cardiovascular: Regular Rate, Rhythm, No Murmur GI/Abdominal: Soft, Non-Tender (Male) Exam: Deferred Rectal (Males) Exam: Deferred Back Exam: No: CVA Tenderness (L), CVA Tenderness (R), Muscle Spasm, Paraspinal Tenderness, Vertebral Tenderness Extremities: Normal Inspection, Non-Tender, Normal Capillary Refill Neurological: Alert, Oriented, CN II-XII Intact, Normal Cognition, Normal Gait, No Motor/Sensory Deficits, Sensory/Motor Deficit Psychiatric: Normal Affect Skin Exam: Warm, Dry Course - Vital Signs Last Recorded V/S: Last Vital Signs Temp 36.8 C 06/06/21 10:49 Pulse 76 06/06/21 10:49 Resp 16 06/06/21 10:49 BP 134/68 06/06/21 10:49 Pulse Ox 99 06/06/21 10:49 - Re-Assessments/Exams Free Text/Narrative Re-Assessment/Exam: 06/06/21 11:[address] at this time. Precautions/signs of significant head trauma reviewed with patient and . They state that they will return to ER if any concerns/neuro changes develop over next few hours/days/weeks. Nurse applied steri strip to small laceration near right eye with good result after cleaning of wound. No other injuries identified during exam. Departure - Departure Time of Disposition: 11:37 Disposition: Home, Self-Care 01 Condition: Good Clinical Impression: Fall Qualifiers: Encounter type: initial encounter Qualified Code(s): W19.XXXA - Unspecified fall, initial encounter Contusion of forehead Qualifiers: Encounter type: initial encounter Qualified Code(s): S00.83XA - Contusion of ot her part of head, initial encounter - Discharge Information *PRESCRIPTION DRUG MONITORING PROGRAM REVIEWED*: Not Applicable *COPY OF PRESCRIPTION DRUG MONITORING REPORT IN PATIENT TONJA: Not Applicable Instructions: Facial or Scalp Contusion, [id number] Referrals: Zaida Jimenez PA [Primary Care Provider] - Forms: ED Department Discharge Additional Instructions: Follow up as needed if you notice any changes we reviewed! Please stay upright! Call if you have questions. Sepsis Event Note (ED) - Evaluation Sepsis Screening Result: No Definite Risk - Focused Exam Vital Signs: Vital Signs Temp Pulse Resp BP Pulse Ox 06/06/21 10:49 36.8 C 76 16 134/68 99
== END 2021-06-06 12:00 | disposition home or self-care (01) ==
LOC: LL.ED 10:45
DX: S01.81XA Laceration without foreign body of other part of head, initial encounter (principal); M19.90 Unspecified osteoarthritis, unspecified site; E11.9 Type 2 diabetes mellitus without complications; Z86.711 Personal history of pulmonary embolism; Z91.030 Bee allergy status; Z88.0 Allergy status to penicillin; Z79.01 Long term (current) use of anticoagulants; Z79.899 Other long term (current) drug therapy; W01.0XXA Fall on same level from slipping, tripping and stumbling without subsequent striking against object, initial encounter; Y93.01 Activity, walking, marching and hiking
CPT/HCPCS: 99282; 99283

== ENCOUNTER 2021-08-18 20:57 | Emergency (ER) | payer MEDICARE, BC ==
[2021-08-18] MEDS ORDERED: Sodium Chloride 0.9% 1,000 ML IV ONE (21:29)
[2021-08-18] MEDS ORDERED: Sodium Chloride 0.9% 10 ML Syringe FLUSH PRN ×2 (21:29→22:20)
[2021-08-18] MEDS ORDERED: Meropenem 1 GM in Sodium Chloride 0.9% 100 ML IV ONE (21:29)
[2021-08-18] MEDS ORDERED: Levofloxacin/Dextrose 5%-Water 750 MG in Premix Bag 1 BAG IV ONE (21:34)
[2021-08-18] MEDS ORDERED: Ibuprofen 400 MG Tab PO ONE (21:46)
[2021-08-18 22:33] LABS: CORONAVIRUS COVID-19 NAA NEGATIVE (NEGATIVE); RESPIRATORY SYNCYTIAL VIR NAA NEGATIVE (NEGATIVE)
--- NOTE | 2021-08-18 22:33 | EDM.PDOC ---
ED HPI GENERAL MEDICAL PROBLEM - General Chief Complaint: General Stated Complaint: FEVER, CONFUSION Time Seen by Provider: 08/18/21 22:00 Source of Information: Reports: Patient, Family History Limitations: Reports: Other (mild confusion) - History of Present Illness INITIAL COMMENTS - FREE TEXT/NARRATIVE: Patient is brought in to the ED by his for fever of 104, confusion, weakness and fatigue that came on tonight. Patient has right lung cancer since 2018. he has been geting post chemo infusion fevers for some time and usually gets evaluated. He did get a new type of chemotherapy on 08/16. [facility], but no sick contacts. He does live with his son and grandchildren and they all have URI symptoms. Patient denies new cough, shortness of breath, chest pain, or any other new pain. has chronic low back pain from a fall 3 weeks ago. noted that he became confused as the evening wore on and was alert earlier to the point that he went for a walk by himself. she kept checking his temperature and hen it went over 101 at 18:45 she gave a 1000mg of tylenol. She noted his fever kevin to 104 and he was very weak and confused so brought him in. His oxygen was found to be low at arrival 88% on room air. He is not on oxygen at home. He dose have a remote history of thoracentesis that was recurrent on the right and did have a pleurodesis with correction of this. thinks it was in 2018. Patient has minimal complaints. 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 Back Pain Score (Numeric/FACES): 3 - Related Data Allergies Allergy/AdvReac Type Severity Reaction Status Date / Time bee venom protein (honey bee) Allergy Unknown Other Verified 06/06/21 10:54 Penicillins Allergy Unknown Other Verified 06/06/21 10:54 Home Meds: Home Meds Calcium Carbonate/Vitamin D3 [Calcium 600Mg-D3 400 Unit Sfgl] 1 each PO BID 10/27/18 [History] Multivit with Calcium,Iron,Min [Essential Daily] 1 each PO DAILY 10/27/18 [History] Sertraline [Zoloft] 25 mg PO DAILY 10/27/18 [History] Apixaban [Eliquis] 2.5 mg PO BID 12/14/20 [History] oxyCODONE 5 mg PO Q4HR PRN 12/14/20 [History] Acetaminophen [Tylenol Arthritis] 2 tab PO ASDIRECTED 01/01/21 [History] prednisoLONE [Millipred] 10 mg PO DAILY 08/18/21 [History] levoFLOXacin [Levaquin] 750 mg PO DAILY #10 tab 08/19/21 [Rx] Past Medical History HEENT History: Reports: Cataract, Impaired Vision, Other (See Below) Other HEENT History: 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 Patient wears glasses. Cataracts with no surgery to this point. Cardiovascular History: Reports: Blood Clots/VTE/DVT, High Cholesterol, Other (See Below) Other Cardiovascular History: DVT of the right popliteal region with secondary bilateral PEs in October 2017 with current Eliquis therapy. Respiratory History: Reports: Intubation, Previous, PE, Other (See Below) Other Respiratory History: PE as above. Right-sided Port-A-Cath placement in October 2017. Right lower lobe lung cancer with current chemotherapy and no previous radiation therapy. Gastrointestinal History: Reports: Diverticulosis, Gastritis, GERD, Other (See Below) Other Gastrointestinal History: Sigmoid diverticulosis by CT scan. Benign he patic cysts by CT scan. Genitourinary History: Reports: BPH, Prostate Disorder, Other (See Below) Other Genitourinary History: Prostate and bladder cancer as below. Benign renal cysts by CT scan. Musculoskeletal History: Reports: Arthritis, Back Pain, Chronic, Fracture, Osteoarthritis, Other (See Below) Other Musculoskeletal History: Left lateral malleolar fracture in October 2001. Previous chronic T12 and L1 vertebral body compression fractures. Neurological History: Reports: Concussion, Head Trauma, Vertigo, Other (See Below) Other Neuro History: Head concussion X 1 in about 1979. Benign positional vertigo. 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 Prostate cancer in 2016 with previous prostate biopsy and hormonal therapy. 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 Unknown type of bladder cancer in 2003 with BCG therapy. Dermatologic History: Reports: None - Infectious Disease History Infectious Disease History: Reports: Chicken Pox - Past Surgical History Head Surgeries/Procedures: Reports: None HEENT Surgical History: Reports: Adenoidectomy, Eye Surgery, Oral Surgery, Tonsillectomy, Other (See Below) Other HEENT Surgeries/Procedures: Tonsillectomy and adenoidectomy at about age 5. Pterygium removal of the right eye in his 40s. [place] teeth extraction with additional tooth extractions. Cardiovascular Surgical History: Reports: Other (See Below) Other Cardiovascular Surgeries/Procedures: Right-sided Port-A-Cath placement in October 2017. Respiratory Surgical History: Reports: Lung Biopsies, Thoracentesis, Other (See Below) Other Respiratory Surgeries/Procedures: Lung biopsies for lung cancer with subsequent right sided pleurodesis in April 2018. GI Surgical History: Reports: Colonoscopy, EGD, Other (See Below) Other GI Surgeries/Procedures: Last Colonoscopy in about 2012. EGD in September 2017. Male Surgical History: Reports: Circumcision, Prostate Biopsy Other Male Surgeries/Procedures: Circumcision as an . Prostate biopsies for prostate cancer as above. Cystoscopy on 02/28/04. Endocrine Surgical History: Reports: None Neurological Surgical History: Reports: None Musculoskeletal Surgical History: Reports: Arthroscopic Procedure, Joint Replacement, Knee Replacement, Shoulder Surgery, Other (See Below) Other Musculoskeletal Surgeries/Procedures:: Bilateral total knee arthroplasty in 2010. Arthroscopic right shoulder surgery in about 2003. Oncologic Surgical History: Reports: Other (See Below) Other Oncologic Surgeries/Procedures: As above Dermatological Surgical History: Reports: Other (See Below) - Past Imaging History Past Imaging History: Reports: CAT Scan (CT of the chest, abdomen, and pelvis on 10/02/17.), MRI (MRI of the thoracic and lumbar spine on 01/29/11), Other (See Below) (IVP on 02/06/04) Social & Family History - Caffeine Use Caffeine Use: Reports: None - Alcohol Use Alcohol Use History: No - Recreational Drug Use Recreational Drug Use: No Drug Use in Last 12 Months: No - Living Situation & Occupation Living situation: Reports: (1966. 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 Denies: Sinus Problem, Throat Pain, Throat Swelling Respiratory: Reports: Shortness of Breath (worse tonight), Cough (minimal chronic) Cardiovascular: Reports: No Symptoms. Denies: Chest Pain GI/Abdominal: Denies: Abdominal Pain, Diarrhea, Flatus, Nausea, Vomiting : Reports: No Symptoms Musculoskeletal: Reports: Back Pain (for the last 3 weeks due to a fall). Denies: Neck Pain Skin: Reports: No Symptoms Neurological: Reports: Confusion ED EXAM, GENERAL - Physical Exam Exam: See Below Exam Limited By: Other (slow to answer questions but does attempt. no focal neuro deficit) General Appearance: Alert, No Apparent Distress Eye Exam: Bilateral Eye: EOMI, PERRL Ear Exam: Bilateral Ear: Auricle Normal, Canal Normal, TM normal Nose: Normal Inspection Throat/Mouth: Normal Inspection, Normal Lips, Normal Teeth, Normal Voice Head: Atraumatic Neck: Normal Inspection Respiratory/Chest: No Respiratory Distress, No Accessory Muscle Use, Decreased Breath Sounds (right mid lung to base), Crackles (rigth base) Cardiovascular: No Rub, Tachycardia GI/Abdominal: Normal Bowel Sounds, Soft, Non-Tender Extremities: Normal Inspection, Normal Range of Motion, Non-Tender, No Pedal Edema Skin Exam: Increased Warmth #1 Interpretation EKG Date: 08/18/21 Time: 22:07 Rhythm: NSR Rate (Beats/Min): 111 [place]: Normal P-Wave: Present QRS: Normal ST-T: Normal QT: Normal Course - Vital Signs Last Recorded V/S: Last Vital Signs Temp 38.6 C H 08/18/21 22:23 Pulse 88 08/19/21 00:12 Resp 18 08/19/21 00:12 BP 110/55 L 08/19/21 00:12 Pulse Ox 98 08/19/21 00:12 - Orders/Labs/Meds Orders: Active Orders 24 hr Category Date Time Status Blood Pressure Mgt: Sepsis [RC] Q15MX2 Care 08/18/21 21:30 Active EKG Documentation Completion [RC] ASDIRECTED Care 08/18/21 21:30 Active Oxygen Therapy, ED [RC] STAT Care 08/18/21 21:30 Active Peripheral IV Care [RC] . DIRECTED Care 08/18/21 22:20 Active Chest 1V Frontal [CR] Stat Exams 08/18/21 21:29 Taken PE Chest [Ang Chest] [CT] Stat Exams 08/18/21 22:45 Taken CULTURE BLOOD [BC] Stat Lab 08/18/21 22:05 Received CULTURE BLOOD [BC] Stat Lab 08/18/21 22:10 Results PROCALCITONIN [REF] Stat Lab 08/18/21 22:05 Received Sodium Chloride 0.9% [Saline Flush] Med 08/18/21 21:29 Active 10 ml FLUSH ASDIRECTED PRN Sodium Chloride 0.9% [Saline Flush] Med 08/18/21 22:20 Active 10 ml FLUSH ASDIRECTED PRN Blood Culture x2 Reflex Set [OM.PC] Stat Oth 08/18/21 21:29 Ordered Peripheral IV Insertion Adult [OM.PC] Routine Oth 08/18/21 22:20 Ordered Saline Lock Insert [OM.PC] Stat Oth 08/18/21 21:29 Ordered Medication Orders Sodium Chloride (Sodium Chloride 0.9% 10 Ml Syringe) 10 ml FLUSH ASDIRECTED PRN PRN Reason: Keep Vein Open Sodium Chloride (Sodium Chloride 0.9% 10 Ml Syringe) 10 ml FLUSH ASDIRECTED PRN PRN Reason: Keep Vein Open Labs: Laboratory Tests 08/18/21 08/18/21 08/18/21 Range/Units 21:29 21:50 22:05 WBC 14.2 H (4.0-10.2) K/uL RBC 3.60 L (4.33-5.41) M/uL Hgb 11.4 L (13.1-16.8) g/dL Hct 35.7 L (39.0-49.0) % MCV 99.2 H D (84.0-98.0) fL MCH 31.7 (28.2-33.3) pg MCHC 31.9 (31.7-36.0) g/dL RDW 13.5 (11.2-14.1) % Plt Count 144 L D (150-350) K/uL Neut % (Auto) 96.0 H (45.0-80.0) % Lymph % (Auto) 2.5 L (10.0-50.0) % [place] % (Auto) 1.3 L (2.0-14.0) % Eos % (Auto) 0.1 (0.0-5.0) % Baso % (Auto) 0.1 (0.0-2.0) % Neut # (Auto) 13.63 H (1.40-7.00) K/uL Lymph # (Auto) 0.36 L (0.50-3.50) K/uL [place] # (Auto) 0.18 (0.00-1.00) K/uL Eos # (Auto) 0.01 (0.00-0.50) K/uL Baso # (Auto) 0.02 (0.00-0.20) K/uL PT (9.5-12.0) SEC INR D-Dimer, Quantitative (0-400) ng/mL ABG pH (7.35-7.45) ABG pCO2 (35-45) mmHG ABG pO2 (80-105) mmHG ABG HCO3 (22-26) mmol/L ABG Total CO2 (23-27) mmol/L ABG O2 Saturation (95-98) % ABG Base Excess (-2-3) mmol/L O2 Delivery Device Sodium (136-145) mmol/L Potassium (3.5-5.1) mmol/L Chloride (98-107) mmol/L Carbon Dioxide (21.0-32.0) mmol/L Anion Gap (7-15) meq/L BUN (7-18) mg/dL Creatinine (0.51-1.17) mg/dL Est Cr Clr Drug Dosing Estimated GFR (MDRD) mL/min Glucose (70-99) mg/dL Lactic Acid (0.4-2.0) mmol/L Calcium (8.5-10.1) mg/dL Total Bilirubin (0.2-1.0) mg/dL AST (15-37) U/L ALT (12-78) U/L Alkaline Phosphatase (46-116) IU/L Troponin I High Sens (<=76) ng/L C-Reactive Protein (<=0.9) mg/dL Total Protein (6.4-8.2) g/dL Albumin (3.4-5.0) g/dL Specimen Type Urincc Urine Color Yellow Urine Appearance Clear Urine pH 5.0 (5.0-9.0) Ur Specific [place] >= 1.030 (1.005-1.030) Urine Protein 100 H (NEGATIVE) mg/dL Urine Glucose (UA) Negative (NEGATIVE) mg/dL Urine Ketones Negative (NEGATIVE) mg/dL Urine Occult Blood Negative (NEGATIVE) Urine Nitrite Negative (NEGATIVE) Urine Bilirubin Negative (NEGATIVE) Urine Urobilinogen 0.2 (0.2-1.0) E.U./dL Ur Leukocyte Esterase Negative (NEGATIVE) Urine RBC Not seen /HPF Urine WBC 0-5 /HPF Ur Epithelial Cells Not seen /LPF Urine Bacteria Rare (NONE TO FEW) /HPF Urine Mucus Moderate H (NEGATIVE) /LPF Influenza Type A RNA Negative (NEGATIVE) RSV RNA (INAAT) Negative (NEGATIVE) Influenza Type B RNA Negative (NEGATIVE) SARS-CoV-2 RNA (ERICK) Negative (NEGATIVE) 08/18/21 08/18/21 08/18/21 Range/Units 22:05 22:05 22:05 WBC (4.0-10.2) K/uL RBC (4.33-5.41) M/uL Hgb (13.1-16.8) g/dL Hct (39.0-49.0) % MCV (84.0-98.0) fL MCH (28.2-33.3) pg MCHC (31.7-36.0) g/dL RDW (11.2-14.1) % Plt Count (150-350) K/uL Neut % (Auto) (45.0-80.0) % Lymph % (Auto) (10.0-50.0) % [place] % (Auto) (2.0-14.0) % Eos % (Auto) (0.0-5.0) % Baso % (Auto) (0.0-2.0) % Neut # (Auto) (1.40-7.00) K/uL Lymph # (Auto) (0.50-3.50) K/uL [place] # (Auto) (0.00-1.00) K/uL Eos # (Auto) (0.00-0.50) K/uL Baso # (Auto) (0.00-0.20) K/uL PT 10.6 (9.5-12.0) SEC INR 1.1 D-Dimer, Quantitative 1320 H (0-400) ng/mL ABG pH (7.35-7.45) ABG pCO2 (35-45) mmHG ABG pO2 (80-105) mmHG ABG HCO3 (22-26) mmol/L ABG Total CO2 (23-27) mmol/L ABG O2 Saturation (95-98) % ABG Base Excess (-2-3) mmol/L O2 Delivery Device Sodium 139 (136-145) mmol/L Potassium 3.8 (3.5-5.1) mmol/L Chloride 103 (98-107) mmol/L Carbon Dioxide 24.5 (21.0-32.0) mmol/L Anion Gap 11.5 (7-15) meq/L BUN 28 H (7-18) mg/dL Creatinine 1.16 (0.51-1.17) mg/dL Est Cr Clr Drug Dosing TNP Estimated GFR (MDRD) > 60 mL/min Glucose 134 H (70-99) mg/dL Lactic Acid (0.4-2.0) mmol/L Calcium 9.3 (8.5-10.1) mg/dL Total Bilirubin 0.6 (0.2-1.0) mg/dL AST 15 (15-37) U/L ALT 17 (12-78) U/L Alkaline Phosphatase 99 (46-116) IU/L Troponin I High Sens 8 (<=76) ng/L C-Reactive Protein 10.8 H (<=0.9) mg/dL Total Protein 5.9 L (6.4-8.2) g/dL Albumin 3.1 L (3.4-5.0) g/dL Specimen Type Urine Color Urine Appearance Urine pH (5.0-9.0) Ur Specific [place] (1.005-1.030) Urine Protein (NEGATIVE) mg/dL Urine Glucose (UA) (NEGATIVE) mg/dL Urine Ketones (NEGATIVE) mg/dL Urine Occult Blood (NEGATIVE) Urine Nitrite (NEGATIVE) Urine Bilirubin (NEGATIVE) Urine Urobilinogen (0.2-1.0) E.U./dL Ur Leukocyte Esterase (NEGATIVE) Urine RBC /HPF Urine WBC /HPF Ur Epithelial Cells /LPF Urine Bacteria (NONE TO FEW) /HPF Urine Mucus (NEGATIVE) /LPF Influenza Type A RNA (NEGATIVE) RSV RNA (INAAT) (NEGATIVE) Influenza Type B RNA (NEGATIVE) SARS-CoV-2 RNA (ERICK) (NEGATIVE) 08/18/21 08/18/21 Range/Units 22:05 22:15 WBC (4.0-10.2) K/uL RBC (4.33-5.41) M/uL Hgb (13.1-16.8) g/dL Hct (39.0-49.0) % MCV (84.0-98.0) fL MCH (28.2-33.3) pg MCHC (31.7-36.0) g/dL RDW (11.2-14.1) % Plt Count (150-350) K/uL Neut % (Auto) (45.0-80.0) % Lymph % (Auto) (10.0-50.0) % [place] % (Auto) (2.0-14.0) % Eos % (Auto) (0.0-5.0) % Baso % (Auto) (0.0-2.0) % Neut # (Auto) (1.40-7.00) K/uL Lymph # (Auto) (0.50-3.50) K/uL [place] # (Auto) (0.00-1.00) K/uL Eos # (Auto) (0.00-0.50) K/uL Baso # (Auto) (0.00-0.20) K/uL PT (9.5-12.0) SEC INR D-Dimer, Quantitative (0-400) ng/mL ABG pH 7.45 (7.35-7.45) ABG pCO2 37 (35-45) mmHG ABG pO2 110 H (80-105) mmHG ABG HCO3 25.6 (22-26) mmol/L ABG Total CO2 26 (23-27) mmol/L ABG O2 Saturation 99 H (95-98) % ABG Base Excess 2 (-2-3) mmol/L O2 Delivery Device Nasal cannula Sodium (136-145) mmol/L Potassium (3.5-5.1) mmol/L Chloride (98-107) mmol/L Carbon Dioxide (21.0-32.0) mmol/L Anion Gap (7-15) meq/L BUN (7-18) mg/dL Creatinine (0.51-1.17) mg/dL Est Cr Clr Drug Dosing Estimated GFR (MDRD) mL/min Glucose (70-99) mg/dL Lactic Acid 1.3 (0.4-2.0) mmol/L Calcium (8.5-10.1) mg/dL Total Bilirubin (0.2-1.0) mg/dL AST (15-37) U/L ALT (12-78) U/L Alkaline Phosphatase (46-116) IU/L Troponin I High Sens (<=76) ng/L C-Reactive Protein (<=0.9) mg/dL Total Protein (6.4-8.2) g/dL Albumin (3.4-5.0) g/dL Specimen Type Urine Color Urine Appearance Urine pH (5.0-9.0) Ur Specific [place] (1.005-1.030) Urine Protein (NEGATIVE) mg/dL Urine Glucose (UA) (NEGATIVE) mg/dL Urine Ketones (NEGATIVE) mg/dL Urine Occult Blood (NEGATIVE) Urine Nitrite (NEGATIVE) Urine Bilirubin (NEGATIVE) Urine Urobilinogen (0.2-1.0) E.U./dL Ur Leukocyte Esterase (NEGATIVE) Urine RBC /HPF Urine WBC /HPF Ur Epithelial Cells /LPF Urine Bacteria (NONE TO FEW) /HPF Urine Mucus (NEGATIVE) /LPF Influenza Type A RNA (NEGATIVE) RSV RNA (INAAT) (NEGATIVE) Influenza Type B RNA (NEGATIVE) SARS-CoV-2 RNA (ERICK) (NEGATIVE) Meds: Medications Generic Name Dose Route Start Last Admin Trade Name Freq PRN Reason Stop Dose Admin Sodium Chloride 10 ml 08/18/21 21:29 Sodium Chloride 0.9% 10 Ml Syringe FLUSH ASDIRECTED PRN Keep Vein Open Sodium Chloride 10 ml 08/18/21 22:20 Sodium Chloride 0.9% 10 Ml Syringe FLUSH ASDIRECTED PRN Keep Vein Open Discontinued Medications Generic Name Dose Route Start Last Admin Trade Name Freq PRN Reason Stop Dose Admin Meropenem 1 gm/ Sodium 100 mls @ 200 mls/hr 08/18/21 21:29 08/18/21 22:56 Chloride IV 08/18/21 21:58 Not Given STAT ONE Vancomycin HCl 2 gm/ Sodium 250 mls @ 167 mls/hr 08/18/21 21:29 08/18/21 22:58 Chloride IV 08/18/21 22:58 167 mls/hr STAT ONE Administration Sodium Chloride 1,000 mls @ 999 mls/hr 08/18/21 21:29 08/18/21 22:40 Normal Saline IV 08/18/21 22:29 400 mls/hr BOLUS ONE Infusion Protocol Levofloxacin/Dextrose 750 mg/ 150 mls @ 100 mls/hr 08/18/21 21:34 08/18/21 22:29 Premix IV 08/18/21 23:03 100 mls/hr ONETIME ONE Administration Ibuprofen 400 mg 08/18/21 21:46 08/18/21 22:23 Ibuprofen 400 Mg Tab PO 08/18/21 21:47 400 mg ONETIME ONE Administration Iopamidol 100 ml 08/18/21 23:01 08/18/21 23:39 Iopamidol 755 Mg/Ml 100 Ml Bottle IVPUSH 08/18/21 23:02 100 ml ONETIME ONE Administration Vancomycin HCl Confirm 08/18/21 22:55 08/18/21 23:04 Vancomycin 1 Gm Sdv Administered 08/18/21 22:56 Not Given Dose [address] .[facility] ONE - Radiology Interpretation Free Text/Narrative:: chest x-ray with small loculated right pleural effusion slightly increased in si ze from comparison of 01/2021. progressive volume loss with increasing rigth parenchymal opacities and righ tperiphilar opacity. could be infectious of disease porgression. CT chest recommended. interpreted by radiologist Chest ct with PE protocol no PE< increasing right lower lobe infiltrate increased lyphadenopathy, see report, discussed with radiologist - Re-Assessments/Exams Free Text/Narrative Re-Assessment/Exam: Patient will be worked up for sepsis with lactic acid, labs, blood cultures, urine culture, covid/flu/rsv testing. Iv fluids will be strated. Has had max tylenol dose in the last 3 hours, will give a one time dose of motrin 400 mg for fever of 101, was 104. Is on eliquis due to history of dvt. Vancomycin and levaquin for possible pneumonia due to history of infections and cancer. Has had covid vaccine x 3 08/18/21 22:40 Discussed with radiology, has increased infiltrate on the right lower lobe, decreased volume. hilar lymph nodes, concern for disease progression. Loculated pleural effusion with concern for increased in size. CT chest recommended with contrast 08/19/21 00:11 vitals signs are better. NO fever, no longer tachycardic. will turn off the oxygen and see how he does. was 88% at arrival. Antibiotics are still infusing. 08/19/21 00:48 Patient did well off oxygen, sats with walking did dip to 89% at one time, resting recovered above 90%. Has a pulse ox at home, can check. States his oxygen gets a little low from time to time but recovers well. Wants to go home. Will try this with po levaquin, close follow up with oncology. ct pushed to [facility]. return precautions given and understood Departure - Departure Time of Disposition: 00:42 Disposition: Home, Self-Care 01 Condition: Fair Clinical Impression: Pneumonia, Fever - Discharge Information *PRESCRIPTION DRUG MONITORING PROGRAM REVIEWED*: No *COPY OF PRESCRIPTION DRUG MONITORING REPORT IN PATIENT TONJA: No Prescriptions: levoFLOXacin [Levaquin] 750 mg PO DAILY #10 tab Instructions: Fever, Adult, How to Use an Incentive Spirometer, Fever, Adult, [id number], Community-Acquired Pneumonia, Adult, [id number] Referrals: Galilea Ramey MD [Primary Care Provider] - Forms: ED Department Discharge Additional Instructions: control fevers with tyelnol. check your pulse ox throughout the day. if it is less than 90%, rest. If it does not get above 90% return to the ED. Take the oral antibiotic until gone. Call your oncologist tomorrow for close follow up . You had a fever to 104, white count elevated to 14.2, but normal lactic acid and negative for covid, flu and rsv. Chest Ct was negative for blood clot, but increasing lymph nodes and right lower lobe infiltrate consistent with pneumonia ( new changes). Use the incentive spirometer every hour while awake, 10 repetitions. Sepsis Event Note (ED) - Focused Exam Vital Signs: Vital Signs Temp Temp Temp Pulse Resp BP Pulse Ox 08/19/21 00:12 88 18 110/55 L 98 08/18/21 23:40 88 18 120/59 L 98 08/18/21 23:05 98 16 115/54 L 99 08/18/21 22:50 98 18 114/59 L 100 08/18/21 22:40 105 H 16 109/55 L 98 08/18/21 22:23 38.6 C H 08/18/21 22:15 110 H 18 98 08/18/21 22:00 110 H 18 94 L 08/18/21 21:45 114 H 18 121/69 98 08/18/21 21:30 116 H 16 119/65 95 08/18/21 21:15 38.7 C H 117 H 18 117/68 88 L 08/18/21 20:58 38.1 C 121 H 18 126/67 90 L Pulse Ox 08/19/21 00:12 08/18/21 23:40 08/18/21 23:05 08/18/21 22:50 08/18/21 22:40 95 08/18/21 22:23 08/18/21 22:15 08/18/21 22:00 08/18/21 21:45 08/18/21 21:30 88 L 08/18/21 21:15 08/18/21 20:58 - My Orders Last 24 Hours: My Active Orders 08/18/21 21:29 Chest 1V Frontal [CR] Stat Sodium Chloride 0.9% [Saline Flush] 10 ml FLUSH ASDIRECTED PRN Blood Culture x2 Reflex Set [OM.PC] Stat Saline Lock Insert [OM.PC] Stat 08/18/21 21:30 Blood Pressure Mgt: Sepsis [RC] Q15MX2 EKG Documentation Completion [RC] ASDIRECTED Oxygen Therapy, ED [RC] STAT 08/18/21 22:05 CULTURE BLOOD [BC] Stat PROCALCITONIN [REF] Stat 08/18/21 22:10 CULTURE BLOOD [BC] Stat 08/18/21 22:20 Peripheral IV Care [RC] . DIRECTED Sodium Chloride 0.9% [Saline Flush] 10 ml FLUSH ASDIRECTED PRN Peripheral IV Insertion Adult [OM.PC] Routine 08/18/21 22:45 PE Chest [Ang Chest] [CT] Stat - Assessment/Plan Last 24 Hours: My Active Orders 08/18/21 21:29 Chest 1V Frontal [CR] Stat Sodium Chloride 0.9% [Saline Flush] 10 ml FLUSH ASDIRECTED PRN Blood Culture x2 Reflex Set [OM.PC] Stat Saline Lock Insert [OM.PC] Stat 08/18/21 21:30 Blood Pressure Mgt: Sepsis [RC] Q15MX2 EKG Documentation Completion [RC] ASDIRECTED Oxygen Therapy, ED [RC] STAT 08/18/21 22:05 CULTURE BLOOD [BC] Stat PROCALCITONIN [REF] Stat 08/18/21 22:10 CULTURE BLOOD [BC] Stat 08/18/21 22:20 Peripheral IV Care [RC] . DIRECTED Sodium Chloride 0.9% [Saline Flush] 10 ml FLUSH ASDIRECTED PRN Peripheral IV Insertion Adult [OM.PC] Routine 08/18/21 22:45 PE Chest [Ang Chest] [CT] Stat
[2021-08-18 22:41] LABS: O2 DELIVERY DEVICE NASAL CANNULA
[2021-08-18 22:42] LABS: BASE EXCESS ARTERIAL 2 mmol/L (-2-3); BICARBONATE,ARTERIAL 25.6 mmol/L (22-26); O2 SATURATION ARTERIAL 99 % (95-98); PCO2 ARTERIAL 37 mmHG (35-45); PO2 ARTERIAL 110 mmHG (80-105)
[2021-08-18 22:44] LABS: ANION GAP 11.5 meq/L (7-15); CHLORIDE,CL 103 mmol/L (98-107); SODIUM,NA 139 mmol/L (136-145)
[2021-08-18] MEDS ORDERED: Vancomycin 1 GM SDV ONE (22:55)
[2021-08-18] MEDS ORDERED: Iopamidol 755 Mg/ML 100 ML Bottle IVPUSH ONE (23:01)
== END 2021-08-19 01:20 | disposition home or self-care (01) ==
LOC: LL.ED 20:57
DX: J18.9 Pneumonia, unspecified organism (principal); Z91.030 Bee allergy status; Z88.0 Allergy status to penicillin; Z79.01 Long term (current) use of anticoagulants; Z79.899 Other long term (current) drug therapy; Z20.822 Contact with and (suspected) exposure to COVID-19
CPT/HCPCS: 0241U; 36415; 36600; 71045; 71275; 80053; 81001; 82803; 83605; 84145; 84484; 85025; 85379; 85610; 86140; 87040; 93005; 93010; 96365; 96366; 96367; 99284; 99285-25; A9270-GY; J1956; J3370; J7030; J7050; Q9967

== ENCOUNTER 2021-10-20 15:05 | Emergency (ER) | payer MEDICARE, BC ==
[2021-10-20 16:16] LABS: ANION GAP 8.7 meq/L (7-15); CHLORIDE,CL 105 mmol/L (98-107); SODIUM,NA 138 mmol/L (136-145)
[2021-10-20 16:18] LABS: RESPIRATORY SYNCYTIAL VIR NAA NEGATIVE (NEGATIVE)
[2021-10-20 16:19] LABS: CORONAVIRUS COVID-19 NAA POSITIVE (NEGATIVE)
== END 2021-10-20 17:00 | disposition home or self-care (01) ==
LOC: LL.ED 15:05
DX: U07.1 COVID-19 (principal); E11.9 Type 2 diabetes mellitus without complications; Z85.118 Personal history of other malignant neoplasm of bronchus and lung; Z87.891 Personal history of nicotine dependence; Z86.711 Personal history of pulmonary embolism; Z86.718 Personal history of other venous thrombosis and embolism; Z91.030 Bee allergy status; Z88.0 Allergy status to penicillin; Z79.01 Long term (current) use of anticoagulants; Z79.899 Other long term (current) drug therapy
CPT/HCPCS: 0241U; 36415; 71046; 80053; 85025; 87081; 87430; 99283-25; 99284

== ENCOUNTER 2022-09-04 19:27 | Observation (INO) | payer MEDICARE, BC ==
[2022-09-04] MEDS ORDERED: Sodium Chloride 0.9% 10 ML Syringe FLUSH PRN (19:36)
[2022-09-04] MEDS ORDERED: Sodium Chloride 0.9% 1,000 ML IV ONE (20:00)
[2022-09-04 20:12] LABS: ANION GAP 15.7 meq/L (7-15)
[2022-09-04 20:35] LABS: CORONAVIRUS COVID-19 NAA NEGATIVE (NEGATIVE); RESPIRATORY SYNCYTIAL VIR NAA NEGATIVE (NEGATIVE)
[2022-09-04] MEDS ORDERED: Magnesium Sulfate/Water 2 GM in Premix Bag 1 BAG IV ONE (21:58)
[2022-09-04] MEDS ORDERED: Potassium Bicarbonate/Cit Ac 20 MEQ Effervescent Tab PO ONE ×2 (21:59→23:00)
[2022-09-04] MEDS ORDERED: Loperamide 2 MG Tab PO PRN (22:03)
[2022-09-04] MEDS: Sodium Chloride 0.9% 1,000 ML IV SCH (22:23)
[2022-09-05] MEDS ORDERED: Potassium Bicarbonate/Cit Ac 20 MEQ Effervescent Tab PO ONE (01:00)
[2022-09-05] MEDS ORDERED: Magnesium Sulfate/Water 2 GM in Premix Bag 1 BAG IV ONE (01:00)
[2022-09-05] MEDS: Sodium Chloride 0.9% 1,000 ML IV SCH (02:58)
[2022-09-05 08:23] LABS: ANION GAP 9.1 meq/L (7-15)
[2022-09-05] MEDS ORDERED: Acetaminophen 650 MG Tab.ER PO PRN (08:57)
[2022-09-05] MEDS ORDERED: Apixaban 2.5 MG Tab PO SCH (08:58)
[2022-09-05] MEDS ORDERED: AFATINIB DIMALEATE 40 MG PO SCH (09:00)
[2022-09-05] MEDS ORDERED: Calcium Carbonate/Vitamin D3 1500 MG-400 Units Tab PO SCH (09:00)
[2022-09-05] MEDS ORDERED: Sertraline 25 MG Tab PO SCH (09:00)
[2022-09-05] MEDS ORDERED: Memantine 10 MG Tab PO SCH (09:00)
[2022-09-05] MEDS ORDERED: Magnesium Chloride 64 MG Tab.ER PO SCH (09:00)
[2022-09-05] MEDS ORDERED: Dexamethasone 2 MG Tab PO SCH (09:00)
[2022-09-05] MEDS ORDERED: Cholecalciferol (Vitamin D3) 25 MCG Tab PO SCH (09:00)
[2022-09-05] MEDS ORDERED: predniSONE 5 MG Tab PO SCH ×2 (09:00→09:15)
[2022-09-08] MEDS ORDERED: Memantine 10 MG Tab PO SCH (08:00)
[2022-09-13] MEDS ORDERED: Dexamethasone 2 MG Tab PO SCH (08:00)
[2022-09-15] MEDS ORDERED: Memantine 10 MG Tab PO SCH ×2 (08:00→20:00)
[2022-09-22] MEDS ORDERED: Memantine 10 MG Tab PO SCH (08:00)
== END 2022-09-05 15:00 | disposition home or self-care (01) ==
LOC: LL.ED 19:27 → LL.MS 21:47
PROVIDERS: ADMIT Emergency Medicine; ATTEND Emergency Medicine
DX: E86.0 Dehydration (principal); E83.42 Hypomagnesemia; R19.7 Diarrhea, unspecified; M19.90 Unspecified osteoarthritis, unspecified site; K21.9 Gastro-esophageal reflux disease without esophagitis; Z87.891 Personal history of nicotine dependence; Z20.822 Contact with and (suspected) exposure to COVID-19; Z88.0 Allergy status to penicillin; Z91.030 Bee allergy status; Z79.01 Long term (current) use of anticoagulants; Z79.899 Other long term (current) drug therapy; Z86.711 Personal history of pulmonary embolism; Z86.718 Personal history of other venous thrombosis and embolism; Z90.09 Acquired absence of other part of head and neck; Z96.653 Presence of artificial knee joint, bilateral; Z98.890 Other specified postprocedural states
CPT/HCPCS: 0241U; 36415; 71046; 80048; 80053; 81001; 83605; 83735; 85025; 87081; 87430; 96360; 96361; 96365; 96366; 99285-25; A9270-GY; G0378; J3475; J7030; J8540

== ENCOUNTER 2022-09-14 09:33 | Emergency (ER) | payer MEDICARE, BC ==
[2022-09-14] MEDS ORDERED: Sodium Chloride 0.9% 10 ML Syringe FLUSH PRN (09:51)
[2022-09-14 10:35] LABS: CORONAVIRUS COVID-19 NAA NEGATIVE (NEGATIVE); RESPIRATORY SYNCYTIAL VIR NAA NEGATIVE (NEGATIVE)
[2022-09-14 10:37] LABS: ANION GAP 7.5 meq/L (7-15)
== END 2022-09-14 12:28 | disposition home or self-care (01) ==
LOC: LL.ED 09:33
DX: C34.31 Malignant neoplasm of lower lobe, right bronchus or lung (principal); D64.9 Anemia, unspecified; E83.42 Hypomagnesemia; E83.51 Hypocalcemia; E78.00 Pure hypercholesterolemia, unspecified; E11.9 Type 2 diabetes mellitus without complications; Z91.030 Bee allergy status; Z88.0 Allergy status to penicillin; Z79.01 Long term (current) use of anticoagulants; Z20.822 Contact with and (suspected) exposure to COVID-19
CPT/HCPCS: 0241U; 36415; 71046; 80053; 83735; 85025; 99283; 99285

== ENCOUNTER 2022-09-15 07:05 | Observation (INO) | payer MEDICARE, BC ==
[~2022-09-15 07:05] MED LIST: Albuterol/Ipratropium 3.0-0.5 MG/3 ML Neb Soln NEB ONE
[2022-09-15] MEDS ORDERED: Sodium Chloride 0.9% 10 ML Syringe FLUSH PRN (07:26)
[2022-09-15] MEDS ORDERED: methylPREDNISolone Sodium Succinate 125 MG/2 ML SDV ONE (07:27)
[2022-09-15] MEDS ORDERED: methylPREDNISolone Sodium Succinate 125 MG/2 ML SDV IM ONE (07:28)
[2022-09-15] MEDS ORDERED: methylPREDNISolone Sodium Succinate 125 MG/2 ML SDV IVPUSH ONE (07:31)
[2022-09-15 07:55] LABS: ANION GAP 14.3 meq/L (7-15); CHLORIDE,CL 105 mmol/L (98-107); SODIUM,NA 141 mmol/L (136-145)
[2022-09-15 08:05] LABS: ESTIMATED GFR 63 mL/min (>=60)
[2022-09-15 09:03] LABS: CORONAVIRUS COVID-19 NAA NEGATIVE (NEGATIVE); RESPIRATORY SYNCYTIAL VIR NAA NEGATIVE (NEGATIVE)
[2022-09-15] MEDS ORDERED: Albuterol/Ipratropium 3.0-0.5 MG/3 ML Neb Soln NEB PRN (10:13)
[2022-09-15] MEDS ORDERED: Acetaminophen 650 MG Tab.ER PO PRN (10:33)
[2022-09-15] MEDS ORDERED: Loperamide 2 MG Tab PO PRN (10:33)
[2022-09-15] MEDS ORDERED: predniSONE 5 MG Tab PO SCH (11:00)
[2022-09-15] MEDS: Dexamethasone 2 MG Tab PO SCH (12:31)
[2022-09-15] MEDS: Magnesium Chloride 64 MG Tab.ER PO SCH (18:26)
[2022-09-15] MEDS: Memantine 10 MG Tab PO SCH (18:27)
[2022-09-15] MEDS: Calcium Carbonate/Vitamin D3 625 MG-125 Unit Tab PO SCH (18:27)
[2022-09-15] MEDS: Apixaban 2.5 MG Tab PO SCH (19:45)
[2022-09-16] MEDS ORDERED: predniSONE 5 MG Tab PO SCH (08:00)
[2022-09-16] MEDS: Dexamethasone 2 MG Tab PO SCH (08:41)
[2022-09-16] MEDS: Sertraline 50 MG Tab PO SCH (08:41)
[2022-09-16] MEDS: Memantine 10 MG Tab PO SCH ×2 (08:41→18:04)
[2022-09-16] MEDS: Calcium Carbonate/Vitamin D3 625 MG-125 Unit Tab PO SCH ×2 (08:42→18:03)
[2022-09-16] MEDS: Apixaban 2.5 MG Tab PO SCH ×2 (08:42→19:37)
[2022-09-16] MEDS: Magnesium Chloride 64 MG Tab.ER PO SCH ×2 (08:43→18:03)
[2022-09-16] MEDS: Cholecalciferol (Vitamin D3) 25 MCG Tab PO SCH (08:43)
[2022-09-16] MEDS ORDERED: Sodium Chloride 0.9% 1,000 ML IV SCH (11:45)
[2022-09-16 12:03] LABS: ANION GAP 8.7 meq/L (7-15)
[2022-09-16] MEDS: Loperamide 2 MG Tab PO PRN ×3 (13:24→21:24)
[2022-09-17] MEDS: Memantine 10 MG Tab PO SCH (07:39)
[2022-09-17] MEDS: Magnesium Chloride 64 MG Tab.ER PO SCH (07:40)
[2022-09-17] MEDS: Dexamethasone 2 MG Tab PO SCH (07:40)
[2022-09-17] MEDS: Apixaban 2.5 MG Tab PO SCH (07:40)
[2022-09-17] MEDS: Sertraline 50 MG Tab PO SCH (07:41)
[2022-09-17] MEDS: Cholecalciferol (Vitamin D3) 25 MCG Tab PO SCH (07:41)
[2022-09-17] MEDS: Calcium Carbonate/Vitamin D3 625 MG-125 Unit Tab PO SCH (07:42)
[2022-09-17 07:45] VITALS: BP 130/68; PULSE 87
[2022-09-17] MEDS: Loperamide 2 MG Tab PO PRN (07:54)
== END 2022-09-17 11:13 | disposition home or self-care (01) ==
LOC: LL.ED 07:05 → UNDOADMOB 09:30 → LL.MS 09:30
PROVIDERS: ADMIT Emergency Medicine; ATTEND Emergency Medicine
DX: C34.31 Malignant neoplasm of lower lobe, right bronchus or lung (principal); R09.02 Hypoxemia; R19.7 Diarrhea, unspecified; E78.00 Pure hypercholesterolemia, unspecified; K21.9 Gastro-esophageal reflux disease without esophagitis; M19.90 Unspecified osteoarthritis, unspecified site; F41.9 Anxiety disorder, unspecified; F32.A Depression, unspecified; E11.9 Type 2 diabetes mellitus without complications; D70.1 Agranulocytosis secondary to cancer chemotherapy; R00.0 Tachycardia, unspecified; Z88.0 Allergy status to penicillin; Z91.030 Bee allergy status; Z79.899 Other long term (current) drug therapy; Z98.890 Other specified postprocedural states; Z20.822 Contact with and (suspected) exposure to COVID-19
CPT/HCPCS: 0241U; 36415; 71045; 71046; 80053; 82550; 83605; 84484; 85025; 85379; 93005; 94640; 96374; 97162-GP; 97530-GP; 99285-25; A9270-GY; G0378; J2930; J3490; J7030; J7620-GY; J8540

== ENCOUNTER 2022-11-13 06:30 | Observation (INO) | payer MEDICARE, BC ==
[2022-11-13 07:25] LABS: ANION GAP 7.3 meq/L (7-15)
[2022-11-13] MEDS: Ondansetron 4 MG/2 ML SDV IVPUSH PRN (07:30)
[2022-11-13] MEDS: HYDROmorphone 1 MG/ML Syringe IVPUSH PRN ×4 (07:35→22:29)
[2022-11-13] MEDS ORDERED: Sennosides 8.6 MG Tab PO PRN (08:43)
[2022-11-13] MEDS ORDERED: Acetaminophen 650 MG Tab.ER PO PRN (08:43)
[2022-11-13] MEDS ORDERED: Non-Formulary Medication 1 Each (Dexamethasone [Dexamethasone] 4 MG Tablet) PO SCH ×2 (08:45)
[2022-11-13] MEDS: Sodium Chloride 0.9% 1,000 ML IV SCH (09:13)
[2022-11-13] MEDS ORDERED: Apixaban 2.5 MG Tab PO SCH (09:15)
[2022-11-13] MEDS: Cholecalciferol (Vitamin D3) 25 MCG Tab PO SCH (11:02)
[2022-11-13] MEDS: Calcium Carbonate/Vitamin D3 1500 MG-400 Units Tab PO SCH ×2 (11:03→17:09)
[2022-11-13] MEDS: Sertraline 25 MG Tab PO SCH (11:04)
[2022-11-13] MEDS: Dexamethasone 2 MG Tab PO SCH (11:06)
[2022-11-13] MEDS ORDERED: OLANZapine 10 MG Tab PO SCH (20:00)
[2022-11-13] MEDS ORDERED: OLANZapine 10 MG Tab.DIS PO SCH (22:00)
[2022-11-14] MEDS: Sodium Chloride 0.9% 1,000 ML IV SCH (04:45)
[2022-11-14] MEDS: HYDROmorphone 1 MG/ML Syringe IVPUSH PRN ×2 (06:02→08:46)
[2022-11-14] MEDS: Sertraline 25 MG Tab PO SCH (08:12)
[2022-11-14] MEDS: Dexamethasone 2 MG Tab PO SCH (08:12)
[2022-11-14] MEDS: Calcium Carbonate/Vitamin D3 1500 MG-400 Units Tab PO SCH (08:16)
[2022-11-14 08:17] LABS: CORONAVIRUS COVID-19 NAA NEGATIVE (NEGATIVE); RESPIRATORY SYNCYTIAL VIR NAA NEGATIVE (NEGATIVE)
[2022-11-14] MEDS: Cholecalciferol (Vitamin D3) 25 MCG Tab PO SCH (08:17)
[2022-11-14] MEDS: Ondansetron 4 MG/2 ML SDV IVPUSH PRN (08:46)
[2022-11-14] MEDS ORDERED: OLANZapine 10 MG Tab.DIS PO SCH (20:00)
== END 2022-11-14 09:00 ==
LOC: SUPCPDRO 06:30 → LL.ED 06:30 → LL.MS 08:11
PROVIDERS: ADMIT Emergency Medicine; ATTEND Emergency Medicine
DX: S72.009A Fracture of unspecified part of neck of unspecified femur, initial encounter for closed fracture (principal); K21.9 Gastro-esophageal reflux disease without esophagitis; C61 Malignant neoplasm of prostate; I82.431 Acute embolism and thrombosis of right popliteal vein; E78.00 Pure hypercholesterolemia, unspecified; F41.9 Anxiety disorder, unspecified; F32.A Depression, unspecified; M19.90 Unspecified osteoarthritis, unspecified site; G89.29 Other chronic pain; M54.9 Dorsalgia, unspecified; E11.9 Type 2 diabetes mellitus without complications; Z98.890 Other specified postprocedural states; Z87.891 Personal history of nicotine dependence; Z79.899 Other long term (current) drug therapy; Z20.822 Contact with and (suspected) exposure to COVID-19; Z88.0 Allergy status to penicillin; Z91.030 Bee allergy status; W19.XXXA Unspecified fall, initial encounter
CPT/HCPCS: 0241U; 36415; 51702; 80053; 81001; 85025; 96361; 96374; 96375; 96376; 99284-25; A9270-GY; G0378; J1170; J2405; J7030; J8540

== ENCOUNTER 2022-11-26 08:44 | Inpatient (IN) | payer OTHER, MEDICARE, BC ==
[2022-11-26] MEDS ORDERED: Furosemide 40 MG/4 ML VIAL IVPUSH ONE (08:47)
[2022-11-26] MEDS ORDERED: methylPREDNISolone Sodium Succinate 125 MG/2 ML SDV IVPUSH ONE (08:47)
[2022-11-26] MEDS ORDERED: Sodium Chloride 0.9% 1,000 ML IV ONE (09:07)
[2022-11-26] MEDS: Sodium Chloride 0.9% 10 ML Syringe FLUSH PRN ×8 (09:12→21:28)
[2022-11-26] MEDS ORDERED: Norepinephrine Bit/D5W Premix 250 ML IV SCH (09:15)
[2022-11-26] MEDS ORDERED: LORazepam 2 MG/ML SDV ONE (09:24)
[2022-11-26 09:39] LABS: CORONAVIRUS COVID-19 NAA NEGATIVE (NEGATIVE); RESPIRATORY SYNCYTIAL VIR NAA NEGATIVE (NEGATIVE)
[2022-11-26] MEDS ORDERED: Morphine 2 MG/ML SYRINGE IVPUSH ONE (10:40)
[2022-11-26 10:47] LABS: CHLORIDE,CL 106 mmol/L (98-107); ESTIMATED GFR 52 mL/min (>=60); SODIUM,NA 141 mmol/L (136-145)
[2022-11-26] MEDS: Morphine 2 MG/ML SYRINGE IVPUSH PRN ×5 (12:17→21:27)
[2022-11-26] MEDS: Atropine 1% Ophth Soln 5 ML Bottle SL PRN ×3 (14:11→21:28)
[2022-11-26] MEDS: Morphine 2 MG/ML SYRINGE IVPUSH SCH ×2 (18:13→23:35)
[2022-11-26] MEDS: Hyoscyamine 0.125 MG Tab.SL SL SCH (19:32)
[2022-11-26] MEDS: LORazepam 0.5 MG Tab PO SCH (21:27)
[2022-11-27] MEDS: Hyoscyamine 0.125 MG Tab.SL SL SCH ×4 (00:27→12:24)
[2022-11-27] MEDS: Morphine 2 MG/ML SYRINGE IVPUSH SCH ×3 (01:59→10:13)
[2022-11-27] MEDS: Sodium Chloride 0.9% 10 ML Syringe FLUSH PRN ×5 (02:00→21:49)
[2022-11-27] MEDS: LORazepam 0.5 MG Tab PO SCH ×4 (02:59→12:24)
[2022-11-27] MEDS: Atropine 1% Ophth Soln 5 ML Bottle SL PRN (06:13)
[2022-11-27] MEDS: Morphine 2 MG/ML SYRINGE IVPUSH PRN (07:42)
[2022-11-27] MEDS ORDERED: LORazepam 0.5 MG Tab PO PRN (12:15)
[2022-11-27] MEDS: Dexamethasone 2 MG Tab PO SCH (13:21)
[2022-11-27] MEDS: Morphine Oral Concentrate 20 MG/ML 30 ML Bottle BUCCAL PRN ×2 (14:07→17:21)
[2022-11-27] MEDS: Morphine Oral Concentrate 20 MG/ML 30 ML Bottle BUCCAL SCH ×2 (16:03→21:02)
[2022-11-27] MEDS: Hyoscyamine 0.125 MG Tab.SL SL PRN (17:21)
[2022-11-28] MEDS: Morphine Oral Concentrate 20 MG/ML 30 ML Bottle BUCCAL SCH ×4 (03:05→21:29)
[2022-11-28] MEDS: Morphine Oral Concentrate 20 MG/ML 30 ML Bottle BUCCAL PRN ×4 (06:25→12:20)
[2022-11-28] MEDS: Dexamethasone 2 MG Tab PO SCH (08:01)
[2022-11-28] MEDS: Polyethylene Glycol 3350 Powder 17 GM Packet PO SCH (08:03)
[2022-11-28] MEDS ORDERED: LORazepam 2 MG/ML SDV IM ONE (14:03)
[2022-11-28] MEDS ORDERED: LORazepam 2 MG/ML SDV IVPUSH ONE (15:19)
[2022-11-28] MEDS ORDERED: Morphine 4 MG/ML Syringe IVPUSH PRN (15:22)
[2022-11-28] MEDS: LORazepam 2 MG/ML SDV IVPUSH PRN (15:44)
[2022-11-28] MEDS: Sodium Chloride 0.9% 10 ML Syringe FLUSH SCH (15:54)
[2022-11-28] MEDS: Hyoscyamine 0.125 MG Tab.SL SL PRN (19:59)
[2022-11-29] MEDS: Morphine Oral Concentrate 20 MG/ML 30 ML Bottle BUCCAL SCH ×4 (03:40→22:22)
[2022-11-29] MEDS: Sodium Chloride 0.9% 10 ML Syringe FLUSH SCH (07:33)
[2022-11-29] MEDS: Morphine Oral Concentrate 20 MG/ML 30 ML Bottle BUCCAL PRN ×3 (07:55→18:44)
[2022-11-29] MEDS: Polyethylene Glycol 3350 Powder 17 GM Packet PO SCH (11:13)
[2022-11-29] MEDS: LORazepam 2 MG/ML SDV IVPUSH PRN (12:28)
[2022-11-29] MEDS: Sodium Chloride 0.9% 10 ML Syringe FLUSH PRN (12:31)
[2022-11-29] MEDS: Atropine 1% Ophth Soln 5 ML Bottle SL PRN (22:22)
[2022-11-30] MEDS: Morphine Oral Concentrate 20 MG/ML 30 ML Bottle BUCCAL SCH ×3 (04:12→15:24)
[2022-11-30] MEDS: Polyethylene Glycol 3350 Powder 17 GM Packet PO SCH (08:20)
[2022-11-30] MEDS: Sodium Chloride 0.9% 10 ML Syringe FLUSH SCH (08:26)
[2022-11-30] MEDS: Sodium Chloride 0.9% 10 ML Syringe FLUSH PRN ×2 (08:27→19:25)
[2022-11-30] MEDS: LORazepam 2 MG/ML SDV IVPUSH PRN ×2 (08:47→15:24)
[2022-11-30] MEDS: Atropine 1% Ophth Soln 5 ML Bottle SL PRN ×2 (13:27→15:26)
== END 2022-11-30 20:15 | disposition expired | DRG 951 ==
LOC: LL.ED 08:44 → LL.MS 10:17
PROVIDERS: ADMIT Emergency Medicine; ATTEND Emergency Medicine
DX: Z51.5 Encounter for palliative care (principal); J96.01 Acute respiratory failure with hypoxia; I50.32 Chronic diastolic (congestive) heart failure; C34.31 Malignant neoplasm of lower lobe, right bronchus or lung; D84.821 Immunodeficiency due to drugs; F41.8 Other specified anxiety disorders; D64.9 Anemia, unspecified; K27.9 Peptic ulcer, site unspecified, unspecified as acute or chronic, without hemorrhage or perforation; Z66 Do not resuscitate; H54.7 Unspecified visual loss; M19.90 Unspecified osteoarthritis, unspecified site; E78.00 Pure hypercholesterolemia, unspecified; K57.90 Diverticulosis of intestine, part unspecified, without perforation or abscess without bleeding; K21.9 Gastro-esophageal reflux disease without esophagitis; N40.0 Benign prostatic hyperplasia without lower urinary tract symptoms; M54.9 Dorsalgia, unspecified; G89.29 Other chronic pain; E11.9 Type 2 diabetes mellitus without complications; Z96.653 Presence of artificial knee joint, bilateral; Z20.822 Contact with and (suspected) exposure to COVID-19; Z92.21 Personal history of antineoplastic chemotherapy; Z92.3 Personal history of irradiation; Z88.0 Allergy status to penicillin; Z91.030 Bee allergy status; Z79.01 Long term (current) use of anticoagulants; Z79.899 Other long term (current) drug therapy; Z86.718 Personal history of other venous thrombosis and embolism; Z86.711 Personal history of pulmonary embolism; Z85.46 Personal history of malignant neoplasm of prostate; Z85.51 Personal history of malignant neoplasm of bladder; Z98.890 Other specified postprocedural states; Z98.49 Cataract extraction status, unspecified eye
CPT/HCPCS: 0241U; 36415; 71045; 80053; 81001; 83605; 83735; 83880; 84484; 85025; 85379; 87040; 93005; 93010; 96365; 99285-25; A9270-GY; J1642; J2060; J2270; J2930; J3490; J7030; J8540